=== PATIENT | female | born 1935 | race Caucasian/White ===

== ENCOUNTER → 2016-09-23 | Outpatient (CLI) | payer OTHER, BC ==
[~2016-09-23] MED LIST: ASPI81CH2 PO; B-COCAP2 PO; CLX20 PO; CRS10 PO; GLCSC500400 PO; HYDR25SU6 RE; IBUP-103 PO; METR0.7536 TOP; MULT-506 PO; PRED1SOL OPR; TRIA3AER INH
--- NOTE | 2016-09-23 14:52 | MAMMOGRAPHY REPORT ---
BILATERAL DIGITAL SCREENING MAMMOGRAM WITH CAD: 09/23/2016 CLINICAL HISTORY: Routine screening. Patient has no complaints. TECHNIQUE: Current study was also evaluated with a Computer Aided Detection (CAD) system. Bilatera l CC and MLO views were obtained. COMPARISON: Comparison is made to exams dated: 09/10/2014 mammogram, 11/17/2011 mammogram, 11/16/2010 mammogram - [facility], and 05/19/2009. BREAST COMPOSITION: There are scattered areas of fibroglandular density in both breasts. FINDINGS: No suspicious masses, calcifications, or areas of architectural distortion are noted in e ither breast. There has been no significant interval change compared to prior exams. Scattered bilat eral benign-appearing calcifications are not significantly changed. IMPRESSION: ACR BI-RADS CATEGORY 2: BENIGN There is no mammographic evidence of malignancy. A 1 year screening mammogram is recommended. The p atient will receive written notification of the results. Approximately 10% of breast cancers are not detected with mammography. A negative mammographic repor t should not delay biopsy if a clinically suggestive mass is present. Patricia Fernandes M.D. /:09/23/2016 13:21:19 Chief Marketing Officer: Nyasia FLORES)(Lissa), [facility] letter sent: Normal 1/2 BI-RADS Code: ACR BI-RADS Category 2: Benign
== END | disposition home or self-care (01) ==
LOC: C.MAMM 11:03
PROVIDERS: ATTEND Internal Medicine
DX: Z12.31 Encounter for screening mammogram for malignant neoplasm of breast (principal)

== ENCOUNTER → 2017-03-10 | Outpatient (CLI) | payer OTHER, BC | END | disposition home or self-care (01) | LOC: C.MAMM 15:35 | PROVIDERS: ATTEND Internal Medicine | DX: M81.0 Age-related osteoporosis without current pathological fracture (principal) ==

== ENCOUNTER → 2017-09-01 | Outpatient (CLI) | payer OTHER, BC ==
[2017-09-01 11:26] LABS: BASO % 0.6 %; BASO ABS # 0.05 K/uL (0-0.2); EOS ABS # 0.47 K/uL (0-0.5); HEMOGLOBIN 13.7 g/dL (12.0-16.0); IG# 0.01 K/uL (0.00-0.02); LYMPH % 34.6 %; LYMPH ABS # 2.73 K/uL (1.2-3.4); MEAN CELL VOLUME 95.6 fL (80-100); MEAN CORPUSCULAR HEMOGLOBIN 31.9 pg (25-34); MEAN CORPUSCULAR HGB CONC 33.4 g/dl (32-36); MEAN PLATELET VOLUME 10.8 fL (7.4-10.4); MONO % 7.4 %; MONO ABS # 0.58 K/uL (0.11-0.59); NEUT % 51.3 %; NEUT ABS # 4.05 K/uL (1.4-6.5); PLATELET COUNT 271 K/uL (130-400); RED CELL DISTRIBUTION WIDTH CV 13.1 % (11.5-14.5); RED CELL DISTRIBUTION WIDTH SD 45.4 fL (36.4-46.3); WHITE BLOOD COUNT 7.89 K/uL (4.8-10.8)
[2017-09-01 11:47] LABS: HEMOGLOBIN A1C 5.5 % (4.5-5.6)
[2017-09-01 11:59] LABS: ALBUMIN 3.7 gm/dl (3.4-5.0); ALKALINE PHOSPHATASE 62 U/L (45-117); ALT/SGPT 23 U/L (12-78); AST/SGOT 16 U/L (15-37); BLOOD UREA NITROGEN 13 mg/dl (7-18); CALCIUM 9.1 mg/dl (8.5-10.1); CARBON DIOXIDE 28 mmol/L (21-32); CHOLESTEROL 170 mg/dl (0-200); CREATININE 0.89 mg/dl (0.60-1.20); GLUCOSE 86 mg/dl (70-99); POTASSIUM 3.8 mmol/L (3.5-5.1); SODIUM 139 mmol/L (136-145)
[2017-09-01 12:02] LABS: LDL CHOLESTEROL CALCULATED 78 mg/dl
== END | disposition home or self-care (01) ==
LOC: C.LAB1850 09:58
PROVIDERS: ATTEND Internal Medicine
DX: F41.8 Other specified anxiety disorders (principal); R63.4 Abnormal weight loss

== ENCOUNTER → 2017-11-01 | Outpatient (CLI) | payer OTHER, BC | END | disposition home or self-care (01) | LOC: C.PAPS 14:28 | PROVIDERS: ATTEND Obstetrics & Gynecology | DX: Z12.4 Encounter for screening for malignant neoplasm of cervix (principal) ==

== ENCOUNTER 2023-10-25 14:51 | Inpatient (IN) ==
--- NOTE | 2023-10-25 15:17 | XRay Report ---
SINGLE VIEW CHEST CLINICAL HISTORY: Generalized weakness. Change in mental status. FINDINGS: An AP, portable, semierect chest radiograph is obtained. No prior studies are available for comparison at the time of dictation. The examination is degraded by portable technique and patient r otation. The heart is enlarged measuring atherosclerotic calcification of the thoracic aorta. The pu lmonary vasculature is noncongested. Nonspecific interstitial thickening is likely chronic. There is bibasilar scarring/atelectasis. No airspace consolidation or large pleural effusion is identified. No pneumothorax is seen. The skeletal structures are osteopenic. The bony thorax is grossly intact. Art hritic change is noted in the shoulders and spine. IMPRESSION: Cardiomegaly with no active disease in the chest. ACT 112: Negative or not required by law. Electronically signed by: Josiah Johnson M.D. 10/25/2023 3:15 PM
[2023-10-25 15:36] LABS: Basophils # (auto) 0.03 K/uL (0.00-0.20); Basophils % (auto) 0.3 %; Hematocrit (blood only) 41.9 % (37.0-47.0); Hemoglobin 13.9 g/dl (12.0-16.0); Immature Granulocytes # (auto) 0.04 K/uL (0.01-0.20); Immature Granulocytes % (auto) 0.4 %; Lymphocytes # (auto) 0.55 K/uL (1.20-3.40); Lymphocytes % (auto) 5.7 %; Mean Corpuscular Hemoglobin 31.9 pg (25.0-34.0); Mean Corpuscular Hgb Conc 33.2 g/dL (32.0-36.0); Mean Corpuscular Volume 96.1 fL (80.0-100.0); Mean Platelet Volume 9.5 fL (9.4-12.4); Monocytes # (auto) 0.42 K/uL (0.11-0.59); Monocytes % (auto) 4.4 %; Neutrophils # (auto) 8.54 K/uL (1.40-6.50); Neutrophils % (auto) 89.2 %; Platelet Count 186 K/uL (130-400); RDW Coefficient of Variation 12.4 % (11.5-14.5); Red Blood Count 4.36 M/uL (4.20-5.40); White Blood Count 9.58 K/ul (4.8-10.8)
[2023-10-25] MEDS: SODIUM CHLORIDE 0.9% 500 ML IV ONE (15:42)
[2023-10-25] MEDS: SODIUM CHLORIDE 0.9% 1,000 ML IV SCH (15:42)
[2023-10-25 15:53] LABS: Albumin Globulin Ratio 1.2 (0.9-2); Bilirubin,Total 1.2 mg/dl (0.2-1.0); Calcium 9.3 mg/dl (8.6-10.3); Creatinine Clr Calc Pharmacy 39.2 ml/min; Est GFR (African American) 78.6 ml/min; Est GFR (Non-African American) 67.8 ml/min; Globulin 3.4 gm/dl (2.5-4.0); Potassium 3.9 mmol/L (3.5-5.1); Total Protein 7.4 gm/dl (6.0-8.3)
[2023-10-25 15:59] LABS: Troponin I High Sensitivity 4.9 pg/ml (0-14)
--- NOTE | 2023-10-25 16:07 | CT Scan Report ---
CT SCAN OF THE CERVICAL SPINE CLINICAL HISTORY: Fall. Trauma. COMPARISON STUDY: No priors. TECHNIQUE: CT scan of the cervical spine is performed from the skull base to the upper thoracic spine . Images are reviewed in the axial, sagittal, and coronal planes. IV contrast was not administered fo r this examination. A dose lowering technique was utilized adhering to the principles of ALARA. FINDINGS: Skeletal structures: The skeletal structures are osteopenic. There is no evidence of fracture or subl uxation involving the cervical spine. Vertebral body height is maintained. There is minimal anterolis thesis at C3-C4. Alignment is otherwise preserved. There is straightening of the cervical lordosis. A nterior osteophytes are seen throughout. The odontoid process and lateral masses are intact. The atla ntoaxial articulation is preserved noting advanced productive degenerative change. The spinous proces ses appear intact. There is moderate multilevel cervical spondylosis. Uncovertebral and facet arthrop athy contribute to neural foraminal narrowing at several levels. Intervertebral discs: There is moderate to severe disc space narrowing at C5-C6 and C6-C7. Mild narro wing is seen at the remaining cervical levels. Central canal: Posterior disc osteophyte complexes at C5-C6, C6-C7, and T1-T2 likely contribute to mi ld acquired compromise the central canal. Soft tissues: The prevertebral and paraspinous soft tissues are within normal limits. The thyroid gla nd is not enlarged and heterogeneous. There is atherosclerotic calcification of the carotid bulbs. Calvarium: The visualized calvarium at the skull base appears intact. Brain parenchyma: Partially visualized brain parenchyma at the skull base is within normal limits. Sinuses and mastoids: The visualized paranasal sinuses are clear. The mastoid air cells are well pneu matized. Lung apices: Clear as visualized. IMPRESSION: 1. There is no evidence of fracture or subluxation involving the cervical spine. 2. Osteopenia and spondylotic change as above. ACT 112: Negative or not required by law. Electronically signed by: Josiah Johnson M.D. 10/25/2023 4:05 PM
[2023-10-25 16:08] LABS: Thyroid Stimulating Hormone 2.7 uIu/ml (0.300-4.500)
--- NOTE | 2023-10-25 16:09 | CT Scan Report ---
CT OF THE HEAD WITHOUT CONTRAST CLINICAL HISTORY: fall, left impact COMPARISON STUDY: Head CT August 24, 2010. MRI of the brain November 19, 2020. CT DOSE: 1484.36 mGy.cm TECHNIQUE: Helical axial images of the head were obtained without IV contrast. Automated exposure con trol was utilized for the study. A dose lowering technique was utilized adhering to the principles o f ALARA. FINDINGS: This exam is moderately compromised by motion artifact. No acute intracranial hemorrhage, m idline shift or mass effect is present. Ventricular dilatation is unchanged since previous MRI and re lated to central atrophy. White matter hypodensities suggest small vessel disease. No calvarial fract ures are identified although sensitivity for detection of nondisplaced fractures is diminished given motion artifact. IMPRESSION: 1. No acute intracranial findings. Exam moderately compromised by motion artifact. 2. No displaced calvarial fractures. ACT 112: Negative or not required by law. Electronically signed by: Gustabo Damon M.D. 10/25/2023 4:08 PM
[2023-10-25 16:23] LABS: Influenza A virus by PCR Negative (Neg); Influenza B virus by PCR Negative (Neg); RSV by PCR Negative (Neg); SARS CoV2 RNA(COVID-19) Ceph NEGATIVE (Negative)
[2023-10-25 17:13] LABS: Appearance Urine Turbid (Clear); Bacteria Urine Automated Negative (Negative); Bilirubin Urine Negative (Negative); Blood Urine Negative (Negative); Color Urine Yellow; Epithelial Cell Urine Auto >30 /lpf (0-5); Glucose Urine UA Negative (Negative); Ketones Urine Trace (Negative); Leukocyte Esterase Urine Negative (Negative); Nitrite Urine Negative (Negative); Protein Urine Negative (Negative); RBC Urine Automated 0-4 /hpf (0-4); Specific Gravity Urine 1.015 (1.000-1.030); Urobilinogen Urine Negative (Negative)
--- NOTE | 2023-10-25 18:48 | Emergency Department Note ---
Impression & Plan AMS (altered mental status), Syncope and collapse, Hypotension ED Provider Note NAME: JOCELYNN TILLEY AGE: 88 SEX: Female INFORMANT: ED PROVIDER(S): Trae Monk MD CHIEF COMPLAINT: Change in mental status PLAN: Disposition: Admitted Outpatient prescription management: none Referral: None MEDICAL DECISION MAKING: Patient presented because of change in mental status. She had a syncopal episode last week and 1 this week. Workup was initiated. She had a minor abrasion but no lacerations to the left scalp requiring suturing. CT imaging of the head and cervical spine were negative for any acute process. Patient's CBC and chemistry panels were unremarkable. She was mildly hypotensive and responded very well to a fluid bolus. noted that she was not eating or drinking well. Urinalysis did not reveal any signs of infection. ECG was without acute ischemia. No dysrhythmia on monitoring. Patient appears to have fairly advanced dementia. Discussed with regulatory process manager. Further management in the hospital was deemed appropriate. Consultation was made with [facility]. Case discussed and diagnostics were reviewed. Patient was evaluated in the ER by the team and admitted for further management. Care/management discussed with: regulatory process manager Level of care consideration(s): After review of the information above and other included data, I feel the patient requires escalation of care to admission Triage Nursing notes: reviewed and agree them. Vital Signs: reviewed and remarkable for borderline hypotension Additional History obtained from: Patient's . Patient cannot provide any detailed history due to her dementia. Chronic Medical/Social Conditions affecting care: Dementia Prior/ Outside/ External records reviewed: none Differential Diagnosis: Infection, hypoglycemia, electrolyte abnormalities, overdose, toxicologic, cardiac sources, intracerebral event, neurologic, trauma, as well as other pathologies. Diagnostics, independently interpreted by me: ECG: Twelve-lead ECG reveals sinus rhythm with sinus arrhythmia at 76 bpm. Septal Q wave present nonspecific ST abnormality. No ST elevation. Cardiac Monitoring: Cardiac monitoring ordered by me: The patient was placed on continuous cardiac monitoring and observed. It revealed a sinus rhythm at 80 beats per minute without ectopy or evidence of dysrhythmia. Medical decision rules: none Imaging studies: Head CT: A noncontrast CT scan of the head was performed and was negative for tumor, fracture, intracranial hemorrhage, or other acute pathology. HPI: 88 year old Female arrives for evaluation of change in mental status. notes that the patient has history of dementia but has had 2 syncopal episodes in the last week. He is also concerned that she has had some incontinence. She has not seen her primary provider since he retired. She is not currently taking any medications. did note that the episode today did cause an abrasion and some mild bleeding to the left scalp. Patient does not have any specific complaints and is mildly agitated. History is limited secondary to her dementia. PAST MEDICAL HISTORY: See Below, dementia PAST SURGICAL HISTORY: See Below, SOCIAL HISTORY: See Below, HOME MEDICATIONS: See Below ALLERGIES: See Below VITALS: See Below PHYSICAL EXAMINATION: GENERAL: Awake, alert, mildly agitated-appearing, in no distress HENT: Normocephalic, abrasion noted to the left posterior superior sikh area. Oropharynx unremarkable. EYES: Normal conjunctiva. Sclera non-icteric. NECK: Inspection normal. Non-tender. Supple. No nuchal rigidity. FROM. No masses. RESPIRATORY: Clear to auscultation. No wheezes. No rales. Normal respiratory effort. CARDIAC: Normal rate. Normal rhythm. No murmurs. No rubs. Extremities warm and well perfused. Pulses equal. No JVD. GI: Soft, non-distended. No tenderness to palpation. No rebound or guarding. No masses. RECTAL: Deferred. MUSCULOSKELETAL: Atraumatic. Chest examination reveals no tenderness. The back is symmetrical on inspection without obvious abnormality. There is no CVA tenderness to palpation. No joint edema. LOWER EXTREMITIES: Calves are equal size bilaterally and non-tender. No edema. No discoloration. NEURO: Demented sensorium. Moving arms and legs spontaneously. Following basic commands. SKIN: No rash or jaundice noted. PROCEDURES: none CRITICAL CARE: none OBSERVATION NOTE: none Past Med/Surg History Medical History (Updated 10/25/23 @ 18:49 by Kale Gilbert DO) Osteoporosis Depression Hyperlipidemia Weight loss External hemorrhoids Actinic keratosis Surgical History History of reduction of open fracture right distal radius History of carpal tunnel surgery right 02/27/2008 History of dilation and curettage History of colonoscopy History of cataract 2015 History of back surgery lumbar disc 1987 Family History Father Epilepsy Recurrent seizures Mother Hypertension Coronary heart disease Myocardial infarction Sister Alzheimer disease Depression Grandmother (Paternal) Diabetes Denies family history of Ovarian cancer Prostate cancer Breast cancer Lung cancer Colorectal cancer Stroke Social History Smoking Status: Never smoker Second Hand Exposure: No; Do You Dip or Chew Tobacco: No; Hx Alcohol Use: Yes Alcohol type: wine Alcohol Intake Frequency: 4 or More x per/Week Hx Substance Use: No Preferred Language: Portuguese Communication Ability: Effective Visual Impairment: Limited Hearing Ability: Normal Brand Planner Required: No marital status: Current Living Situation: Spouse current occupational status: retired How many Children do You have: 0 Feels Safe at Home: Yes Childhood Exposure to Second-Hand Smoke: Yes caffeine: Yes Dental Care, Regularly: Yes Physical Activity Frequency: Does not Exercise Seatbelt Use: always Sunscreen Use: Yes Allergies Allergies Allergy/AdvReac Type Severity Reaction Status Date / Time Penicillins Allergy Intermediate RASH Verified 12/15/22 15:21 adhesive Allergy Unknown RASH AND Verified 12/15/22 15:21 "SKIN DISINTEGRATES" clarithromycin [From Biaxin] Allergy Verified 12/15/22 15:21 Sulfa (Sulfonamide AdvReac Mild "make pt Verified 12/15/22 15:21 Antibiotics) sick" alendronate sodium AdvReac Verified 12/15/22 15:21 [From Fosamax] donepezil AdvReac nausea, Verified 12/15/22 15:21 shakiness, headaches Home Meds Previous Rx's Medication Instructions Recorded naproxen 500 mg tablet 500 mg PO Q12H PRN pain #14 tabs 08/07/23 Results & Data (ED) Vital Signs Vital Signs - 24 hr 10/25/23 15:32 10/25/23 15:38 10/25/23 15:38 Temperature 36.2 C L Temperature Source Oral Pulse Rate 81 80 Pulse Rhythm Regular Respiratory Rate 15 16 Blood Pressure 89/75 L Blood Pressure Mean 79 Pulse Oximetry 92 95 95 Oxygen Delivery Method Room Air Room Air Room Air Oxygen Flow Rate 0 Sepsis Recent Fever Within 48 Hours No Sepsis New/Unexplained Change in Mental Status No Sepsis Action Taken by Nursing No Action Required Laboratory Data 10/25/23 15:18 02/27/24 15:18 Lab Results 10/25/23 10/25/23 10/25/23 Range/Units 15:14 15:18 15:19 WBC 9.58 (4.8-10.8) K/ul RBC 4.36 (4.20-5.40) M/uL Hgb 13.9 (12.0-16.0) g/dl Hct 41.9 (37.0-47.0) % MCV 96.1 (80.0-100.0) fL MCH 31.9 (25.0-34.0) pg MCHC 33.2 (32.0-36.0) g/dL RDW Std Deviation 44.0 (36.4-46.3) fL RDW Coeff of [place] 12.4 (11.5-14.5) % Plt Count 186 (130-400) K/uL MPV 9.5 (9.4-12.4) fL Immature Gran % (Auto) 0.4 % Neut % (Auto) 89.2 % Lymph % (Auto) 5.7 % Cass[place] % (Auto) 4.4 % Eos % (Auto) 0.0 % Baso % (Auto) 0.3 % Neut # (Auto) 8.54 H (1.40-6.50) K/uL Lymph # (Auto) 0.55 L (1.20-3.40) K/uL [place] # (Auto) 0.42 (0.11-0.59) K/uL Eos # (Auto) 0.00 (0.00-0.50) K/uL Baso # (Auto) 0.03 (0.00-0.20) K/uL Immature Gran # (Auto) 0.04 (0.01-0.20) K/uL Sodium 139 (136-145) mmol/L Potassium 3.9 (3.5-5.1) mmol/L Chloride 106 (98-107) mmol/L Carbon Dioxide 26 (21-32) mmol/L Anion Gap 7 (3-11) BUN 15 (6-23) mg/dl Creatinine 0.79 (0.6-1.2) mg/dl Est Cr Clr Drug Dosing 39.2 ml/min Est GFR ( Amer) 78.6 ml/min Est GFR (Non-Af Amer) 67.8 ml/min BUN/Creatinine Ratio 19.0 (10-20) Glucose 98 (70-99(Fasting)) mg/dl POC Glucose 88 (70-99) mg/dl Calcium 9.3 (8.6-10.3) mg/dl Magnesium 2.0 (1.7-2.4) mg/dl Total Bilirubin 1.2 H (0.2-1.0) mg/dl AST 23 (13-39) U/L ALT 24 (7-52) U/L Alkaline Phosphatase 42 (34-104) U/L Troponin I High Sens 4.9 (0-14) pg/ml Total Protein 7.4 (6.0-8.3) gm/dl Albumin 4.0 (3.4-5.0) gm/dl Globulin 3.4 (2.5-4.0) gm/dl Albumin/Globulin Ratio 1.2 (0.9-2) TSH 2.700 (0.300-4.500) uIu/ml Urine Color Urine Appearance (Clear) Urine pH (4.5-7.5) Ur Specific [place] (1.000-1.030) Urine Protein (Negative) Urine Glucose (UA) (Negative) Urine Ketones (Negative) Urine Blood (Negative) Urine Nitrite (Negative) Urine Bilirubin (Negative) Urine Urobilinogen (Negative) Ur Leukocyte Esterase (Negative) Urine WBC (Auto) (0-5) /hpf Urine RBC (Auto) (0-4) /hpf U Hyaline Cast (Auto) (0-5) /lpf U Epithel Cells (Auto) (0-5) /lpf Urine Bacteria (Auto) (Negative) SARS-CoV-2 (PCR) NEGATIVE (Negative) Influenza Type A (PCR) Negative (Neg) Influenza Type B (PCR) Negative (Neg) RSV (RT-PCR) Negative (Neg) 10/25/23 Range/Units 17:05 WBC (4.8-10.8) K/ul RBC (4.20-5.40) M/uL Hgb (12.0-16.0) g/dl Hct (37.0-47.0) % MCV (80.0-100.0) fL MCH (25.0-34.0) pg MCHC (32.0-36.0) g/dL RDW Std Deviation (36.4-46.3) fL RDW Coeff of [place] (11.5-14.5) % Plt Count (130-400) K/uL MPV (9.4-12.4) fL Immature Gran % (Auto) % Neut % (Auto) % Lymph % (Auto) % Cassia % (Auto) % Eos % (Auto) % Baso % (Auto) % Neut # (Auto) (1.40-6.50) K/uL Lymph # (Auto) (1.20-3.40) K/uL [place] # (Auto) (0.11-0.59) K/uL Eos # (Auto) (0.00-0.50) K/uL Baso # (Auto) (0.00-0.20) K/uL Immature Gran # (Auto) (0.01-0.20) K/uL Sodium (136-145) mmol/L Potassium (3.5-5.1) mmol/L Chloride (98-107) mmol/L Carbon Dioxide (21-32) mmol/L Anion Gap (3-11) BUN (6-23) mg/dl Creatinine (0.6-1.2) mg/dl Est Cr Clr Drug Dosing ml/min Est GFR ( Amer) ml/min Est GFR (Non-Af Amer) ml/min BUN/Creatinine Ratio (10-20) Glucose (70-99(Fasting)) mg/dl POC Glucose (70-99) mg/dl Calcium (8.6-10.3) mg/dl Magnesium (1.7-2.4) mg/dl Total Bilirubin (0.2-1.0) mg/dl AST (13-39) U/L ALT (7-52) U/L Alkaline Phosphatase (34-104) U/L Troponin I High Sens (0-14) pg/ml Total Protein (6.0-8.3) gm/dl Albumin (3.4-5.0) gm/dl Globulin (2.5-4.0) gm/dl Albumin/Globulin Ratio (0.9-2) TSH (0.300-4.500) uIu/ml Urine Color Yellow Urine Appearance Turbid A (Clear) Urine pH 8.0 H (4.5-7.5) Ur Specific [place] 1.015 (1.000-1.030) Urine Protein Negative (Negative) Urine Glucose (UA) Negative (Negative) Urine Ketones Trace H (Negative) Urine Blood Negative (Negative) Urine Nitrite Negative (Negative) Urine Bilirubin Negative (Negative) Urine Urobilinogen Negative (Negative) Ur Leukocyte Esterase Negative (Negative) Urine WBC (Auto) 1-5 (0-5) /hpf Urine RBC (Auto) 0-4 (0-4) /hpf U Hyaline Cast (Auto) 1-5 (0-5) /lpf U Epithel Cells (Auto) >30 H (0-5) /lpf Urine Bacteria (Auto) Negative (Negative) SARS-CoV-2 (PCR) (Negative) Influenza Type A (PCR) (Neg) Influenza Type B (PCR) (Neg) RSV (RT-PCR) (Neg) Administered Medications Discontinued Medications Sodium Chloride (Nss) 1,000 mls @ 125 mls/hr IV .Q8H RADHA Stop: 10/25/23 23:14 Last Admin: 10/25/23 15:42 Dose: Not Given Documented By: KV Sodium Chloride (Nss) 500 mls @ 999 mls/hr IV .Q31M ONE Stop: 10/25/23 15:55 Last Infusion: 10/25/23 17:26 Dose: Infused Documented By: Admin: 10/25/23 15:42 Dose: 999 mls/hr Documented By: KV Olanzapine (Olanzapine 10 Mg/2.1 Ml Sdv) 5 mg IM NOW STA Stop: 10/25/23 18:32 Last Admin: 10/25/23 19:19 Dose: 5 mg Documented By: LCD Imaging Data Radiologist's Impression: Chest X-Ray 10/25/23 15:06 SINGLE VIEW CHEST CLINICAL HISTORY: Generalized weakness. Change in mental status. FINDINGS: An AP, portable, semierect chest radiograph is obtained. No prior studies are available for comparison at the time of dictation. The examination is degraded by portable technique and patient rotation. The heart is enlarged measuring atherosclerotic calcification of the thoracic aorta. The pulmonary vasculature is noncongested. Nonspecific interstitial thickening is likely chronic. There is bibasilar scarring/atelectasis. No airspace consolidation or large pleural effusion is identified. No pneumothorax is seen. The skeletal structures are osteopenic. The bony thorax is grossly intact. Arthritic change is noted in the shoulders and spine. IMPRESSION: Cardiomegaly with no active disease in the chest. ACT 112: Negative or not required by law. Electronically signed by: Josiah Johnson M.D. 10/25/2023 3:[address] 10/25/23 15:24 CT SCAN OF THE CERVICAL SPINE CLINICAL HISTORY: Fall. Trauma. COMPARISON STUDY: No priors. TECHNIQUE: CT scan of the cervical spine is performed from the skull base to the upper thoracic spine. Images are reviewed in the axial, sagittal, and coronal planes. IV contrast was not administered for this examination. A dose lowering technique was utilized adhering to the principles of ALARA. FINDINGS: Skeletal structures: The skeletal structures are osteopenic. There is no evidence of fracture or subluxation involving the cervical spine. Vertebral body height is maintained. There is minimal anterolisthesis at C3-C4. Alignment is otherwise preserved. There is straightening of the cervical lordosis. Anterior osteophytes are seen throughout. The odontoid process and lateral masses are intact. The atlantoaxial articulation is preserved noting advanced productive degenerative change. The spinous processes appear intact. There is moderate multilevel cervical spondylosis. Uncovertebral and facet arthropathy contribute to neural foraminal narrowing at several levels. Intervertebral discs: There is moderate to severe disc space narrowing at C5-C6 and C6-C7. Mild narrowing is seen at the remaining cervical levels. Central canal: Posterior disc osteophyte complexes at C5-C6, C6-C7, and T1-T2 likely contribute to mild acquired compromise the central canal. Soft tissues: The prevertebral and paraspinous soft tissues are within normal limits. The thyroid gland is not enlarged and heterogeneous. There is atherosclerotic calcification of the carotid bulbs. Calvarium: The visualized calvarium at the skull base appears intact. Brain parenchyma: Partially visualized brain parenchyma at the skull base is within normal limits. Sinuses and mastoids: The visualized paranasal sinuses are clear. The mastoid air cells are well pneumatized. Lung apices: Clear as visualized. IMPRESSION: 1. There is no evidence of fracture or subluxation involving the cervical spine. 2. Osteopenia and spondylotic change as above. ACT 112: Negative or not required by law. Electronically signed by: Josiah Johnson M.D. 10/25/2023 4:[address] 10/25/23 15:24 CT OF THE HEAD WITHOUT CONTRAST CLINICAL HISTORY: fall, left impact COMPARISON STUDY: Head CT August 24, 2010. MRI of the brain November 19, 2020. CT DOSE: 1484.36 mGy.cm TECHNIQUE: Helical axial images of the head were obtained without IV contrast. Automated exposure control was utilized for the study. A dose lowering technique was utilized adhering to the principles of ALARA. FINDINGS: This exam is moderately compromised by motion artifact. No acute intracranial hemorrhage, midline shift or mass effect is present. Ventricular dilatation is unchanged since previous MRI and related to central atrophy. White matter hypodensities suggest small vessel disease. No calvarial fractures are identified although sensitivity for detection of nondisplaced fractures is diminished given motion artifact. IMPRESSION: 1. No acute intracranial findings. Exam moderately compromised by motion artifact. 2. No displaced calvarial fractures. ACT 112: Negative or not required by law. Electronically signed by: Gustabo Damon M.D. 10/25/2023 4:08 PM Discharge Plan Visit Data Chief Complaint: Altered Mental Status ED Provider: Trae Monk Discharge Problem: AMS (altered mental status), Syncope and collapse, Hypotension Patient Disposition: Admitted As Inpatient Discharge Instructions Interventions: ED Discharge Assessment Last Done: 10/25/23 21:15
--- NOTE | 2023-10-25 18:59 | History & Physical Report ---
Date of Service October 25, 2023 Assessment & Plan (1) Cognitive impairment: Plan: Patient is an 88-year-old female with past medical history of dementia and depression/anxiety who presents to the hospital via EMS for increasing confusion. This seems to be a chronic issue that is gradually been worsening rather than an acute/abrupt worsening. Patient to be admitted for case management consultation and placement for long-term care facility. -Admit to [facility], case management consultation placed for urgent/complex case management needs -Frequent reorientation as able -One-to-one supervision required -Dose of Zyprexa given in ED given agitation and fall risk to patient -Blood work including CBC, CMP, TSH, UA nondiagnostic thus far -Head imaging demonstrating no acute abnormality -Patient will likely require dementia sanders level of care given increased confusion and failure to thrive -Workup thus far has not demonstrated any acute abnormality causing worsening confusion. -In addition to ED labs, urine drug screen, phosphorous and vitamin B12 added and pending -Boost supplementation added due to low weight and poor appetite -May need to bolus intermittently as do not feel at this time patient would tolerate maintenance IV fluid given confusion (2) Failure to thrive in adult: Plan: -Poor dietary intake likely secondary to cognitive impairment -Minced and moist diet to reduce aspiration risk -Boost supplementation added -Given a bolus of normal saline in the ED, suspect patient has still relatively dehydrated -Encourage oral hydration but may require additional boluses of fluid, will hold utilizing maintenance IV medication as I do not feel patient will tolerate it right now given poor cooperation and confusion. Plan Disposition: Admit to [facility] with case management consultation for placement, aspiration/fall precautions DVT prophylaxis: GYPSY pelaez given multiple falls, chemoprophylaxis contraindicated Diet: Regular with minced and moist texture CODE STATUS: Full code as patient cannot make decisions on her own and unable to make decision, strongly encourage to readdress this tomorrow History of Present Illness Chief Complaint: Increasing confusion Primary Care Provider: NO PCP Patient is an 88-year-old female with past medical history of dementia and depression/anxiety who presents to the hospital via EMS for increasing confusion. is present at bedside at the time of interview. Both patient and are poor historians and patient is significantly confused to the point that she does not understand where she is at and why she has so many blankets on. It seems that the patient has had issues with confusion as progressively been getting worse over the past year. It seems there is a history of her having depression/anxiety and was previously on Celexa but this has been discontinued. Patient previously on memantine as well and this has also been discontinued. Patient takes no medications routinely. Patient's hus band reports that there has been no vomiting episodes. She has been falling more recently with 2 events where she fell and hit her head. She has been eating and drinking much less lately as well which has been concerning for her . No other meaningful HPI gathered at this time. ED course: Patient evaluated by provider. Labs show no abnormalities except for a mildly elevated bilirubin of 1.2. Urinalysis negative for leukocyte esterase or nitrates. Head imaging not demonstrating any acute pathology. The hospitalist service was consulted for admission to get the patient placed in a care facility. Allergies Allergy/AdvReac Type Severity Reaction Status Date / Time Penicillins Allergy Intermediate RASH Verified 12/15/22 15:21 adhesive Allergy Unknown RASH AND Verified 12/15/22 15:21 "SKIN DISINTEGRATES" clarithromycin [From Biaxin] Allergy Verified 12/15/22 15:21 Sulfa (Sulfonamide AdvReac Mild "make pt Verified 12/15/22 15:21 Antibiotics) sick" alendronate sodium AdvReac Verified 12/15/22 15:21 [From Fosamax] donepezil AdvReac nausea, Verified 12/15/22 15:21 shakiness, headaches Home Medications Medication Instructions Recorded Confirmed Type naproxen 500 mg tablet 500 mg PO Q12H PRN pain #14 tabs 08/07/23 10/25/23 Rx Past Med/Surg History Medical History (Updated 10/25/23 @ 18:49 by Kale Gilbert DO) Osteoporosis Depression Hyperlipidemia Weight loss External hemorrhoids Actinic keratosis Surgical History History of reduction of open fracture right distal radius History of carpal tunnel surgery right 02/27/2008 History of dilation and curettage History of colonoscopy History of cataract 2015 History of back surgery lumbar disc 1987 Family History Father Epilepsy Recurrent seizures Mother Hypertension Coronary heart disease Myocardial infarction Sister Alzheimer disease Depression Grandmother (Paternal) Diabetes Denies family history of Ovarian cancer Prostate cancer Breast cancer Lung cancer Colorectal cancer Stroke Social History Smoking Status: Unknown if ever smoked Second Hand Exposure: No; Do You Dip or Chew Tobacco: No; Hx Alcohol Use: Yes Alcohol type: wine Alcohol Intake Frequency: 4 or More x per/Week Hx Substance Use: No Preferred Language: Urdu Communication Ability: Effective Visual Impairment: Limited Hearing Ability: Normal 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 marital status: Current Living Situation: Spouse Current Living Situation Comment: lives at home with 96 year old current occupational status: retired How many Children do You have: 0 Feels Safe at Home: Yes Childhood Exposure to Second-Hand Smoke: Yes caffeine: Yes Dental Care, Regularly: Yes Physical Activity Frequency: Does not Exercise Seatbelt Use: always Sunscreen Use: Yes Review of Systems Review of Systems: Unobtainable due to cognitive status Physical Exam Constitutional: + thin, + altered mental status and + di sheveled; + uncooperative Eyes: + anicteric sclerae Neck: normal visual inspection Respiratory: normal respiratory effort, lungs clear to auscultation Cardiovascular: Rate/Rhythm: regular rate and regular rhythm Extremities: no edema Skin: + turgor decreased Neurologic: moves all extremities Psychiatric: Orientation: alert; + not oriented to person, + not oriented to place, + not oriented to time and + uncooperative Affect: + anxious affect and + irritable affect Results & Data Results & Data Vital Signs (Past 12 Hours) Vital Signs Temp Pulse Resp BP Pulse Ox O2 Del Method O2 Flow Rate 10/25/23 15:38 80 16 95 Room Air 10/25/23 15:38 95 Room Air 0 10/25/23 15:32 36.2 C L 81 15 89/75 L 92 Room Air Supervising Physician Co-Signing Physician Notes I personally saw and examined the patient. I verified all jose points and agree with resident physician Dr Kale Gilbert, with the following exceptions and/or additions: 88 year old female with slow progressive worsening decline. Unable to get any history from the patient and no longer at bedside when seen. O/E Crying frequently in bed, alert but not orientated x3, able to follow simple one step commands, psychomotor agitation, frail appearing and malnourished, HS RRR, no murmurs, Chest CTAB, Abdo SNT A/P Dementia - no definitive underlying delirium and history of slow progression rather than sudden decline fits with just progression of her dementia. B12 level adn TSH level added for dementia workup. CT head unremarkable. Likely need for placement. PT/OT ordered. SLT ordered as unclear if she is safe to eat although given no hospitalization for aspiration diet ok for now. Previously on memantine but doubtful any benefit at this stage. Possible underlying anxiety/depression - Previously on citalopram but looks like this was not refilled since Dr Horton retired. Consider restarting SSRI. Not currently prescribed as would need to discuss this with her first. Resident Activity Tracking Resident Involvement: Resident Care Provided Care Provided: Adult Hospital Medicine
[2023-10-25] MEDS: OLANZapine 10 MG/2.1 ML SDV IM STA (19:19)
[2023-10-25 23:11] LABS: Amphetamines+Metham, Urine Neg (Neg); Barbiturates, Urine Neg (Neg); Benzodiazepine, Urine Neg (Neg); Cocaine, Urine Neg (Neg); MDMA (Ecstacy), Urine Neg (Neg); Marijuana, Urine Neg (Neg); Methadone, Urine Neg (Neg); Opiate, Urine Neg (Neg); Phencyclidine, Urine Neg (Neg)
[2023-10-26] MEDS: ACETAMINOPHEN 500 MG TAB PO PRN (03:29)
[2023-10-26] MEDS: MELATONIN 3 MG TAB PO PRN (03:29)
--- NOTE | 2023-10-26 08:57 | Billing Data ---
Date of Service October 25, 2023 Coding Level of Care Code 82186 INT INP/OBS CARE
--- OUTSIDE RECORDS SUMMARY | 2023-10-26 08:57 | External Medical Summary | Continuity of Care Document ---
Author Name Unknown Organization [address] Address [address] [place] [id number] Care Team Providers Care Surveillance Director Name Role Phone Blaze Horton Primary Care Physician [phone] Encounter [facility] [id number] Date(s): 10/05/23 - 10/05/[address] Ezequiel [address], [facility] [address] [place] [address] [phone] Encounter Diagnosis Body mass index [BMI] 19.9 or less, adult(Discharge Diagnosis) - 10/05/23 Contact dermatitis(Discharge Diagnosis) - 10/05/23 SK (seborrheic keratosis)(Discharge Diagnosis) - 10/05/23 Alzheimer disease(Discharge Diagnosis) - 10/05/23 Encounter for vitamin deficiency screening(Discharge Diagnosis) - 10/05/23 Confusion(Discharge Diagnosis) - 10/05/23 Anxiety(Discharge Diagnosis) - 10/05/23 Trigger finger(Discharge Diagnosis) - 10/05/23 Discharge Disposition: Home or Self Care Attending Physician: JACKELIN Bermudez Katy Marie Referring Physician: JACKELIN Bermudez Katy Marie Allergies, Adverse Reactions, Alerts No Known Medication Allergies Assessment and Plan Extracted from: Title:Office Visit Note Author:JACKELIN Bermudez Kat y Marie Date:10/05/23 1.Alzheimer disease Problem isChronic Goal:maintence Data:_ Plan:community resource booklet given, discussed [facility] with , discussed safety concerns at home, discussed return precautions 3.Confusion Problem isSubacute Goal:maintence Data:_ Plan:as above 4.Anxiety Problem is_ Goal:_ Data:_ Plan:No medications at this time, 5.Trigger finger Problem isAcute Goal:resolution Data:_ Plan:refer to ortho, trial of Voltaren gel verbalizes understanding and agrees with plan Medications MetroCream 0.75% topical cream Start: 10/05/23 14:55:00 EST, 1 appl, topical, bid, Disp# 45 g, Refills: 3, TO face once or twice aday, other Start Date: 10/05/23 Status: Ordered Voltaren 1% topical gel Start: 10/05/23 15:04:00 EST, 1 appl, topical, qid, Disp# 100 g, PRN: Pain, Pharmacy: [id number] Start Date: 10/05/23 Status: Ordered Problem List Condition Confirmation Course Effective Dates Status H ealth Status Informant Anxiety Confirmed Active Biceps tendinitis Confirmed Active Contact dermatitis Confirmed Active Dermatitis Confirmed Active Disorder of rotator cuff Confirmed Active Right carpal tunnel syndrome Confirmed Active Elevated cholesterol Confirmed Active Headache 1 Confirmed Active Rotator cuff impingement syndrome Confirmed Active Knee joint effusion Confirmed Active Osteoarthritis of knee Confirmed Active Skin pain Confirmed Active Rosacea Confirmed Active Sacroiliac joint inflamed Confirmed Active Shoulder pain Confirmed Active SK (seborrheic keratosis) Confirmed Active simin bonilla Diagnosis Diagnosis Type Effective Dates Health Status Clinical Service Informant Body mass index [BMI] 19.9 or less, adult Discharge Diagnosis 10/05/23 Non-Specified SK (seborrheic keratosis) Discharge Diagnosis 10/05/23 Non-Specified Contact dermatitis Discharge Diagnosis 10/05/23 Non-Specified Alzheimer disease Discharge Diagnosis 10/05/23 Encounter for vitamin deficiency screening Discharge Diagnosis 10/05/23 Confusion Discharge Diagnosis 10/05/23 Anxiety Discharge Diagnosis 10/05/23 Trigger finger Discharge Diagnosis 10/05/23 Non-Specified Procedures Procedure Date Related Diagnosis Body Site Status back surgery Completed D&C - Dilatation and curettage Completed Skin biopsy Completed wrist surgery Completed Vital Signs Most recent to oldest [Reference Range]: 1 Height 158.9 cm (10/05/23 2:32 PM) Patient Weight 47.3 kg (10/05/23 2:32 PM) Body Mass Index 18.73 kg/m2 (10/05/23 2:32 PM) Temperature [36.5-37.9 DegC] 36.5 DegC (10/05/23 2:32 PM) Heart Rate 82 bpm (10/05/23 2:32 PM) Respiratory Rate 16 br/min (10/05/23 2:32 PM) Blood Pressure 110/70mmHg (10/05/23 2:32 PM) Cuff Pulse Pressure 40 mmHg (10/05/23 2:32 PM) Social History Social History Type Response Smoking Status Never smoked cigaret naomie Sex Female [facility] Outpt Note * JACKELIN Bermudez, Yana Herron: PERFORM Event Display: [facility] Outpt Note Authored Date: Chief Complaint establish care- right middle finger contracted for last 3 weeks. memory getting worse History of Present Illness Marisol is an 87 year old female who presents today to establish care. Her PCP has retired and she has not been seen in several years. Unable to recall his name. She is with her who is her caregiver. reports poor memory. Progressing over past 6 months, considerably worse over 2-3 months. [facility] [place] [facility] - [facility] No recent illnesses. Difficult to obtain ROS d/t nature of her Alzheimer's. She does c/o right middle finger is painful and contracted. She is able to straighten it but painful. Review of Systems A total of 10 systems were reviewed. Pertinent positive and negatives addressed in HPI, all other findings are negative. Physical Exam Vitals & Measurements T:36.5C HR:82(Monitored) RR:16 BP:110/70 SpO2:97% HT:158.9cm WT:47.300kg(Dosing) WT:47.3kg BMI:18.73 Constitutional: Alert, No acute distress, Well-appearing, tearful mood and affect, follows simple commands Respiratory: Lung sounds are clear, equal chest rise and fall with breathing, no pursed lip breathing Cardiovascular: Heart sounds regular rate and rhythm, without gallop or murmur, no edema HEENT: Normocephalic, atraumatic, conjunctiva are clear, sclera non-icteric, EOM intact Gastrointestinal: abdomen is soft and non-tender to palpation, normoactive BS, no organomegaly/masses/hernia Musculoskeletal: No weakness, normal gait, no atrophy or abnormal muscle tone, right middle finger is contracted with swelling at the PIP joint Neurological: CN 2-12 grossly intact Skin: Warm, pink, dry, intact Assessment/Plan 1.Alzheimer disease Problem isChronic Goal:maintence Data:_ Plan:community resource booklet given, discussed [facility] with , discussed safety concerns at home, discussed return precautions 3.Confusion Problem isSubacute Goal:maintence Data:_ Plan:as above 4.Anxiety Problem is_ Goal:_ Data:_ Plan:No medications at this time, 5.Trigger finger Problem isAcute Goal:resolution Data:_ Plan:refer to ortho, trial of Voltaren gel verbalizes understanding and agrees with plan Problem List/Past Medical History Ongoing Anxiety Biceps tendinitis Contact dermatitis Dermatitis Disorder of rotator cuff Elevated cholesterol Headache Knee joint effusion Osteoarthritis of knee Right carpal tunnel syndrome Rosacea Rotator cuff impingement syndrome Sacroiliac joint inflamed Shoulder pain SK (seborrheic keratosis) Skin pain Procedure/Surgical History D&C - Dilatation and curettage wrist surgery back surgery Skin biopsy Medications diclofenac topical(Voltaren 1% topical gel), 1 appl, topical, qid, PRN metroNIDAZOLE topical(MetroCream 0.75% topical cream), 1 appl, topical, bid, 3 refills Allergies No Known Medication Allergies Social History Smoking Status Never smoked cigarettes Recommendations Health Maintenance Pending(in the next year) OverDue Adult Influenza Vaccine due02/25/23and every 1year Due Adult COVID-19 Vaccination due10/05/23Unknown Frequency Adult Social Determinants of Health Screening due10/05/23Unknown Frequency Adult Tdap/Td Vaccine due10/05/23Unknown Frequency Medicare Annual Wellness Visit due10/05/23and every 1year Pneumococcal Vaccine Older Adults due10/05/23One-time only Shingles Vaccine due10/05/23One-time only Satisfied(in the past 1 year) Satisfied Body Mass Index on10/05/23.Satisfied by CITLALI Payne Angela Electronic Signature on File CC: Jackie Damon, DO [address] [facility] [address] [facility] [id number] Electronically Reviewed/Signed by: JACKELIN Franco Author Signature Dt/Tm:10/05/2023 03:21 PM Department of Family Medicine [facility] Patient Care team information Care Team Personnel Name: MD Horton Paul Position: Referring DIRECT Member Role: Primary Care Provider Address: Address: [address] [place] [address] [place] Care Team Related Persons Name: JAREKJOSÉ ANTONIO Address: home [address] [phone] Name: JOSÉ ANTONIO TILLEY Address: [place] Address: home [address] [phone]
--- NOTE | 2023-10-26 10:16 | Electrocardiogram Report ---
Test Reason : Blood Pressure : / mmHG Vent. Rate : 076 BPM Atrial Rate : 076 BPM P-R Int : 162 ms QRS Dur : 068 ms QT Int : 356 ms P-R-T Axes : 086 031 039 degrees QTc Int : 400 ms Sinus rhythm with occasional Premature atrial complexes Septal infarct , age undetermined Abnormal ECG When compared with ECG of 27-AUG-2010 10:35, Septal infarct is now Present Nonspecific T wave abnormality, worse in Anterior leads QT has shortened Confirmed by Wero Brooks ([id number]) on 10/26/2023 10:16:43 AM Referred By: Confirmed By:Wero Brooks
[2023-10-26] MEDS: CYANOCOBALAMIN 1000 MCG/ML VIAL IM SCH (12:43)
--- NOTE | 2023-10-26 20:29 | Hospitalist Progress Note ---
Date of Service October 26, 2023 Assessment & Plan (1) Cognitive impairment: Plan: will need to get additional history from family/friends but it sounds like she has had worsening mentation for 1-2 years or longer. she had a large drop off in memory and function starting in late fall by report. consider MRI brain. check B1 level. replace low B12. 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 (2) Failure to thrive in adult: Plan: Could consider remeron at bedtime - had been taking SSRI up until recently. Remeron may help night-time sleep, eating, and her depression. (3) Dementia with agitation: Plan: severe. by report she has had some cognitive issues over the last year or two but got markedly worse starting in the late fall 2022. consider MRI brain to r/o strokes/vascular causes of her memory loss. replace low B12. check B1 level. (4) Mild malnutrition: Plan: BMI 19, with recent weight loss of about 2-3 kg over the last few months. Will supplement B12. Give MVI. Check a B1 level as well. (5) Tachycardia: Plan: during my exam she had an episode of tachycardia - very regular - with rate of at least 150 BPM, probably closer to 160 BPM. I ordered STAT EKG. by the time it was done a few minutes later she was back in NSR with rate <80. will obtain echo. recent electrolytes and TSH were wnl. SVT? consider moving to tele for monitoring. despite the tachycardia she had no apparent symptoms. 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 but otherwise unable to provide other meaningful history or ROS per staff - eating well, drinking ok, directable; no agitation Review of Systems Review of Systems: Unobtainable due to cognitive status Physical Exam Physical Exam: gen - thin, pleasantly confused, NAD mouth - MMM neck - no obvious JVD heart - tachycardic, rate about 150-160, s1 s2, no murmur lungs - CTA b/l abd - soft NT ND BS+ ext - no edema psych - oriented to person only Results & Data Results & Data Vital Signs (Past 12 Hours) Vital Signs Temp Pulse Resp BP Pulse Ox O2 Del Method 10/26/23 15:24 36.4 C L 76 18 98/58 L 99 Room Air 10/26/23 13:37 71 18 96/68 L Room Air 10/26/23 12:27 65 15 94/62 L 97 Room Air 10/26/23 09:03 75 16 93/63 L 98 Room Air Laboratory Results Laboratory Results - last 48 hr 10/25/23 10/25/23 10/25/23 15:14 15:18 15:19 WBC 9.58 RBC 4.36 Hgb 13.9 Hct 41.9 MCV 96.1 MCH 31.9 MCHC 33.2 RDW Std Deviation 44.0 RDW Coeff of [place] 12.4 Plt Count 186 MPV 9.5 Immature Gran % (Auto) 0.4 Neut % (Auto) 89.2 Lymph % (Auto) 5.7 [place] % (Auto) 4.4 Eos % (Auto) 0.0 Baso % (Auto) 0.3 Neut # (Auto) 8.54 H Lymph # (Auto) 0.55 L [place] # (Auto) 0.42 Eos # (Auto) 0.00 Baso # (Auto) 0.03 Immature Gran # (Auto) 0.04 Sodium 139 Potassium 3.9 Chloride 106 Carbon Dioxide 26 Anion Gap 7 BUN 15 Creatinine 0.79 Est Cr Clr Drug Dosing 39.2 Est GFR ( Amer) 78.6 Est GFR (Non-Af Amer) 67.8 BUN/Creatinine Ratio 19.0 Glucose 98 POC Glucose 88 Lactate Calcium 9.3 Phosphorus Magnesium 2.0 Total Bilirubin 1.2 H AST 23 ALT 24 Alkaline Phosphatase 42 Troponin I High Sens 4.9 Total Protein 7.4 Albumin 4.0 Globulin 3.4 Albumin/Globulin Ratio 1.2 Vitamin B12 TSH 2.700 Urine Color Urine Appearance Urine pH Ur Specific [place] Urine Protein Urine Glucose (UA) Urine Ketones Urine Blood Urine Nitrite Urine Bilirubin Urine Urobilinogen Ur Leukocyte Esterase Urine WBC (Auto) Urine RBC (Auto) U Hyaline Cast (Auto) U Epithel Cells (Auto) Urine Bacteria (Auto) Urine Opiates Screen Ur Methadone, Qual Urine Barbiturates Ur Phencyclidine (PCP) U Amphetamin/Meth Scrn MDMA (Ecstasy) Screen U Benzodiazepines Scrn Ur Cocaine Metabolite U Marijuana (THC) Screen SARS-CoV-2 (PCR) NEGATIVE Influenza Type A (PCR) Negative Influenza Type B (PCR) Negative RSV (RT-PCR) Negative 10/25/23 10/25/23 17:05 19:23 WBC RBC Hgb Hct MCV MCH MCHC RDW Std Deviation RDW Coeff of [place] Plt Count MPV Immature Gran % (Auto) Neut % (Auto) Lymph % (Auto) [place] % (Auto) Eos % (Auto) Baso % (Auto) Neut # (Auto) Lymph # (Auto) [place] # (Auto) Eos # (Auto) Baso # (Auto) Immature Gran # (Auto) Sodium Potassium Chloride Carbon Dioxide Anion Gap BUN Creatinine Est Cr Clr Drug Dosing Est GFR ( Amer) Est GFR (Non-Af Amer) BUN/Creatinine Ratio Glucose POC Glucose Lactate 1.2 Calcium Phosphorus 3.1 Magnesium Total Bilirubin AST ALT Alkaline Phosphatase Troponin I High Sens Total Protein Albumin Globulin Albumin/Globulin Ratio Vitamin B12 134 L TSH Urine Color Yellow Urine Appearance Turbid A Urine pH 8.0 H Ur Specific [place] 1.015 Urine Protein Negative Urine Glucose (UA) Negative Urine Ketones Trace H Urine Blood Negative Urine Nitrite Negative Urine Bilirubin Negative Urine Urobilinogen Negative Ur Leukocyte Esterase Negative Urine WBC (Auto) 1-5 Urine RBC (Auto) 0-4 U Hyaline Cast (Auto) 1-5 U Epithel Cells (Auto) >30 H Urine Bacteria (Auto) Negative Urine Opiates Screen Neg Ur Methadone, Qual Neg Urine Barbiturates Neg Ur Phencyclidine (PCP) Neg U Amphetamin/Meth Scrn Neg MDMA (Ecstasy) Screen Neg U Benzodiazepines Scrn Neg Ur Cocaine Metabolite Neg U Marijuana (THC) Screen Neg SARS-CoV-2 (PCR) Influenza Type A (PCR) Influenza Type B (PCR) RSV (RT-PCR) PG Care Time/CCT Total # of Minutes Spent Total Time Spent with Patient: Total time spent is greater than 50% in coordination of care (as documented) at patient's floor/unit and/or counseling patient: Coding Level of Care Code 63260 SUB INP/OBS CARE 2/35MIN Diagnoses Cognitive impairment R41.89 Failure to thrive in adult R62.7 Dementia with agitation F03.911 Mild malnutrition E44.1 Tachycardia R00.0 B12 deficiency E53.8
[2023-10-27] MEDS: CEROVITE ADV FORMULA TAB PO SCH (10:23)
--- NOTE | 2023-10-27 12:59 | Electrocardiogram Report ---
Test Reason : Blood Pressure : / mmHG Vent. Rate : 076 BPM Atrial Rate : 076 BPM P-R Int : 156 ms QRS Dur : 064 ms QT Int : 394 ms P-R-T Axes : 078 -27 022 degrees QTc Int : 443 ms Poor data quality, interpretation may be adversely affected Normal sinus rhythm Nonspecific ST and T wave abnormality Abnormal ECG When compared with ECG of 25-OCT-2023 15:07, Premature atrial complexes are no longer Present Criteria for Septal infarct are no longer Present Confirmed by Wero Brooks ([id number]) on 10/27/2023 12:59:10 PM Referred By: REFERRED SELF Confirmed By:Wero Brooks
--- NOTE | 2023-10-27 13:19 | XCELERA ---
[id number] \\[id number]\[email or web address]_[id number]
--- NOTE | 2023-10-27 20:16 | Hospitalist Progress Note ---
Date of Service October 27, 2023 Assessment & Plan (1) Cognitive impairment: Plan: will need to get additional history from family/friends but it sounds like she has had worsening mentation for 1-2 years or longer. she had a large drop off in memory and function starting in late fall by report. consider MRI brain. check B1 level. replace low B12. 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 consider placing back on antidepressant (had been on celexa in the recent past but was stopped?). (2) Failure to thrive in adult: Plan: Could consider remeron at bedtime - had been taking SSRI up until recently. Remeron may help night-time sleep, eating, and her depression. (3) Dementia with agitation: Plan: severe. by report she has had some cognitive issues over the last year or two but got markedly worse starting in the late fall 2022. consider MRI brain to r/o strokes/vascular causes of her memory loss. replace low B12. check B1 level. (4) Mild malnutrition: Plan: BMI 19, with recent weight loss of about 2-3 kg over the last few months. Will supplement B12. Give MVI. Check a B1 level as well. (5) Tachycardia: Plan: during my exam on 10/26 she had an episode of tachycardia - very regular - with rate of at least 150 BPM, probably closer to 160 BPM. I ordered STAT EKG. by the time it was done a few minutes later she was back in NSR with rate <80. echo obtained - normal LV function, acceptable valve function. recent electrolytes and TSH were wnl. SVT? consider moving to [facility] for monitoring. despite the tachycardia she had no apparent symptoms. (6) B12 deficiency: Plan: Level <150 In light of worsening mentation over the last few months by report will start parenteral replacement - 1000mcg daily IM x 5 days, then 1000mcg PO daily thereafter Plan DVT proph - add heparin 5000 BID Admission and Anticipated Discharge Date Admission Date: October 25, 2023 Subjective per nursing had hard time going to bed last pm received melatonin and ultimately fell asleep she then slept all night last pm today - very tearful throughout the day but no agitation or aggressive behaviors eating fair during my visit she was pleasantly confused tearful at times but 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[place], 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 Review of Systems Review of Systems: Unobtainable due to cognitive status Physical Exam Physical Exam: gen - thin, pleasantly confused, NAD; tearful at times mouth - MMM neck - no obvious JVD heart - RRR, s1 s2, no murmur lungs - CTA b/l abd - soft NT ND BS+ ext - no edema, pulses 2+ b/l psych - oriented to person only; speech - word salad at times; does follow commands Results & Data Results & Data Vital Signs (Past 12 Hours) Vital Signs Temp Pulse Resp BP Pulse Ox O2 Del Method 10/27/23 15:07 36.4 C L 76 18 102/68 97 Room Air PG Care Time/CCT Total # of Minutes Spent Total Time Spent with Patient: Total time spent is greater than 50% in coordination of care (as documented) at patient's floor/unit and/or counseling patient: Coding Level of Care Code 33596 SUB INP/OBS CARE 09/22MIN Diagnoses Cognitive impairment R41.89 Failure to thrive in adult R62.7 Dementia with agitation F03.911 Mild malnutrition E44.1 Tachycardia R00.0 B12 deficiency E53.8
[2023-10-27] MEDS: MELATONIN 3 MG TAB PO SCH (21:09)
[2023-10-28] MEDS: HEPARIN SOD 5,000 UNIT/0.5 ML VIAL SQ SCH (10:45)
[2023-10-28] MEDS: GADOBUTROL 65ML VIAL IV ONE (12:18)
--- NOTE | 2023-10-28 12:37 | Magnetic Resonance Report ---
Brain MRI WITH AND WITHOUT CONTRAST HISTORY: rapid decline in mental status; strokes? TECHNIQUE: Multiplanar multisequence MRI of the brain was performed both before and after the intrave nous administration of contrast. COMPARISON STUDY: Head CT 10/25/2023. FINDINGS: A 5 mm hyperintense focus within the DWI sequences within the white matter of the right pos terior frontal lobe on image 17. This favors a subacute infarct. Motion artifact results in suboptima l evaluation of the brain. The midline structures appear intact. There is no mass, hematoma, midline shift. Moderate atrophic changes are noted. There is moderate periarticular white matter T2 hyperinte nsity. This favors microvascular ischemic change. The paranasal sinuses and mastoid air cells are jaspreet ar. Prior bilateral lens replacement. Postcontrast sequences show no areas of abnormal enhancement. IMPRESSION: 1. A 5 mm subacute infarct within the right posterior frontal lobe. 2. Moderate atrophy and moderate microvascular ischemic changes. ACT 112: Negative or not required by law. Electronically signed by: Addison Mccormick M.D. 10/28/2023 12:35 PM
[2023-10-28] MEDS: ASPIRIN 81 MG ECTAB PO SCH (15:28)
[2023-10-28 15:45] LABS: Bilirubin Direct 0.1 mg/dl (0-0.2); Bilirubin,Total 0.6 mg/dl (0.2-1.0); Total Protein 7.2 gm/dl (6.0-8.3)
[2023-10-28] MEDS ORDERED: risperiDONE 0.5 MG TABLET PO PRN (16:58)
--- NOTE | 2023-10-28 16:59 | Hospitalist Progress Note ---
Date of Service October 28, 2023 Assessment & Plan (1) Stroke: Plan: small R sided frontal lobe CVA - subacute - on MRI brain today. I spoke with her POA Elsa by phone today. she confirmed that Mrs Wild has had mild memory issues for a couple of years but not severe enough to interfere with driving and performing ADLs. however, starting in Jun 2023, her functional status dropped off severely, speech became more challenging to understand, etc. her receptive speech, however, remained relatively intact. seeing that the MRI showed this small stroke I question if she has been having small vascular events over the last few months leading to her rapid decline. for her stroke start 81mg of aspirin for secondary prevention. check lipids while here. echo w/o source of thrombus. needs CTA head/neck. if tele shows a.fib then anticoagulation will be needed. (2) Cognitive impairment: Plan: see #1 above. suspect vascular in origin, but cannot rule out nutritional def contributing. check B1 level. while awaiting level place on IV thiamine. replace low B12. 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 consider placing back on antidepressant (had been on celexa in the recent past but was stopped?). (3) Failure to thrive in adult: Plan: Could consider remeron at bedtime - had been taking SSRI up until recently. Remeron may help night-time sleep, eating, and her depression. (4) Dementia with agitation: Plan: see above. replace low B12. check B1 level. due to severe emotional lability and ?hallucinations per staff will start low- dose risperdal 0.25mg HS. cont melatonin. consider SSRI or remeron - ?underlying depression? (5) Mild malnutrition: Plan: BMI 19, with recent weight loss of about 2-3 kg over the last few months. Will supplement B12. Give MVI. Check a B1 level as well. Add thiamine IV while awaiting level. (6) Tachycardia: Plan: during my exam on 10/26 she had an episode of tachycardia - very regular - with rate of at least 150 BPM, probably closer to 160 BPM. I ordered STAT EKG. by the time it was done a few minutes later she was back in NSR with rate <80. echo obtained - normal LV function, acceptable valve function. recent electrolytes and TSH were wnl. a.fib? a.flutter? SVT? move to telemetry. if afib is found this may be the reason for her subacute CVA seen. (7) B12 deficiency: Plan: Level <150 In light of worsening mentation over the last few months by report will start parenteral replacement - 1000mcg daily IM x 5 days, then 1000mcg PO daily thereafter Plan DVT proph - heparin 5000 BID updated pt's POA Elsa by phone today attempted to call pt's but he did not order picker phone Admission and Anticipated Discharge Date Admission Date: October 25, 2023 Subjective patient had MRI brain this am due to her rapidly progressive mental status decline over the last few months/weeks MRI brain + for small R frontal lobe CVA -- subacute she was transferred to telemetry upon transfer her visited after he left she was weeping uncontrollably and was emotionally labile during my visit she was crying profusely and simply unable to tell me why she was crying I was able to re-direct her several times 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 tried to distract her by giving her a word search to work on, etc otherwise she was unable to provide any meaningful history or ROS Review of Systems Review of Systems: Unobtainable due to cognitive status Physical Exam Physical Exam: gen - thin, very confused, expressive aphasia with severe "word salad" at times; tearful mouth - MMM neck - no obvious JVD heart - RRR, s1 s2, no murmur lungs - CTA b/l abd - soft NT ND BS+ ext - no edema, pulses 2+ b/l psych - oriented to person only neuro - no obvious focal deficits, 5/5 motor strength b/l upper & lower exts; no facial droop; expressive aphasia as noted above Results & Data Results & Data Vital Signs (Past 12 Hours) Vital Signs Temp Pulse Pulse Pulse Resp BP BP 10/28/23 15:34 83 10/28/23 13:47 36.5 C 113 H 18 127/72 10/28/23 12:41 36.6 C 62 16 106/71 10/28/23 08:02 36.5 C 66 16 98/50 L Pulse Ox O2 Del Method 10/28/23 15:34 10/28/23 13:47 95 Room Air 10/28/23 12:41 100 Room Air 10/28/23 08:02 99 Room Air Laboratory Results Laboratory Results 10/28/23 15:13 Total Bilirubin 0.6 Direct Bilirubin 0.1 AST 17 ALT 15 Alkaline Phosphatase 46 Total Protein 7.2 Albumin 4.0 Diagnostic Findings Brain MRI 10/28/23 09:49 Brain MRI WITH AND WITHOUT CONTRAST HISTORY: rapid decline in mental status; strokes? TECHNIQUE: Multiplanar multisequence MRI of the brain was performed both before and after the intravenous administration of contrast. COMPARISON STUDY: Head CT 10/25/2023. FINDINGS: A 5 mm hyperintense focus within the DWI sequences within the white matter of the right posterior frontal lobe on image 17. This favors a subacute infarct. Motion artifact results in suboptimal evaluation of the brain. The midline structures appear intact. There is no mass, hematoma, midline shift. Moderate atrophic changes are noted. There is moderate periarticular white matter T2 hyperintensity. This favors microvascular ischemic change. The paranasal sinuses and mastoid air cells are clear. Prior bilateral lens replacement. Postcontrast sequences show no areas of abnormal enhancement. IMPRESSION: 1. A 5 mm subacute infarct within the right posterior frontal lobe. 2. Moderate atrophy and moderate microvascular ischemic changes. ACT 112: Negative or not required by law. Electronically signed by: Addison Mccormick M.D. 10/28/2023 12:35 PM PG Care Time/CCT Total # of Minutes Spent Total Time Spent with Patient: Total time spent is greater than 50% in coordination of care (as documented) at patient's floor/unit and/or counseling patient: Coding Level of Care Code 63374 SUB INP/OBS CARE 3/50MIN Diagnoses Stroke I63.9 Cognitive impairment R41.89 Failure to thrive in adult R62.7 Dementia with agitation F03.911 Mild malnutrition E44.1 Tachycardia R00.0 B12 deficiency E53.8
[2023-10-28] MEDS: THIAMINE HCL 500 MG in SODIUM CHLORIDE 0.9% 50 ML IV SCH (18:03)
[2023-10-28] MEDS: risperiDONE 0.5 MG TABLET PO SCH (19:39)
[2023-10-29 08:45] LABS: BUN Creatinine Ratio 26.7 (10-20); Creatinine Clr Calc Pharmacy 48.6 ml/min; Est GFR (African American) 95.7 ml/min; Est GFR (Non-African American) 82.5 ml/min
[2023-10-29] MEDS: OPTIRAY 320 125ml IV ONE (10:59)
--- NOTE | 2023-10-29 11:49 | CT Scan Report ---
CT angio head w con, CT angio neck with con CLINICAL HISTORY: 88 years-old Female with R frontal lobe CVA. Acute stroke like symptoms COMPARISON STUDY: Brain MRI 10/28/2023 TECHNIQUE: Following the IV administration of 116 cc of Optiray, CT angiogram of the head and neck wa s performed from the aortic arch to the skull apex. Images are reviewed in the axial, sagittal, and c oronal planes. 3-D MIPS images are created and assessed. IV contrast was administered without complic ation. All measurements were obtained according to NASCET criteria. A dose lowering technique was uti lized adhering to the principles of ALARA. CT DOSE: 334.37 mGy.cm FINDINGS: Motion degraded exam. CT ANGIOGRAM OF THE HEAD AND NECK: Three-vessel morphology of the thoracic aorta arch. Patency of the innominate and images including ar teries. The common carotid arteries are widely patent. There is less than 50% stenosis of the left IC A. There is approximately 40% stenosis at the origin of the right ICA. The bilateral anterior and mid dle cerebral arteries are also patent with mild multifocal stenosis. The vertebrobasilar system and p osterior cerebral arteries are patent with mild multifocal stenosis. There is no aneurysm, high-grade stenosis, or proximal branch occlusion identified. Dural sinuses appear patent. Involutional changes with chronic microvascular ischemic disease redemonstrated. The previously descr ibed subcentimeter lacunar infarct in the superior right frontal lobe is not identified by CT. Prior bilateral lens repair. Multinodular thyroid goiter with nodules measuring up to 11 mm. Clear lung api yue. Unremarkable soft tissues. No acute fracture. IMPRESSION: . 1. The previously noted subcentimeter lacunar infarct of the superior right frontal lobe seen on the MRI from 10/28/[address] 2. CTA of the head and neck demonstrates no aneurysm, dissection, high-grade stenosis or arterial occ lusion. ACT 112: Negative or not required by law. The above report was generated using voice recognition software. It may contain grammatical, syntax o r spelling errors. Electronically signed by: Bhupendra Larsen M.D. 10/29/2023 11:47 AM
--- NOTE | 2023-10-29 14:45 | Hospitalist Progress Note ---
Date of Service October 29, 2023 Assessment & Plan (1) Stroke: Plan: small R sided frontal lobe CVA - subacute - on MRI brain. I spoke with her POA Elsa by phone 10/28/23. she confirmed that Mrs Wild has had mild memory issues for a couple of years but not severe enough to interfere with driving and performing ADLs. however, starting in Jun 2023, her functional status dropped off severely, speech became more challenging to understand, etc. her receptive speech, however, remained relatively intact. seeing that the MRI showed this small stroke I question if she has been having small vascular events over the last few months leading to her rapid decline. cont asa 81mg aspirin for secondary prevention. check lipids in am. echo w/o source of thrombus. CTA head/neck with some atherosclerosis but no significant stenosis. if tele shows a.fib then anticoagulation will be needed. (2) Cognitive impairment: Plan: see #1 above. suspect vascular in origin, but cannot rule out nutritional def contributing. checked B1 level. while awaiting level cont IV thiamine. replace low B12. 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 (3) Failure to thrive in adult: Plan: cont MVI cont B12 supplementation cont B1 supplementation (4) Dementia with agitation: Plan: see above. replace low B12. increase risperdal to 0.5mg HS. cont melatonin. consider SSRI or remeron - ?underlying depression? (5) Mild malnutrition: Plan: BMI 19, with recent weight loss of about 2-3 kg over the last few months. Will supplement B12. Give MVI. Check a B1 level as well. Cont thiamine IV while awaiting level. (6) Tachycardia: Plan: during my exam on 10/26 she had an episode of tachycardia - very regular - with rate of at least 150 BPM, probably closer to 160 BPM. I ordered STAT EKG. by the time it was done a few minutes later she was back in NSR with rate <80. echo obtained - normal LV function, acceptable valve function. recent electrolytes and TSH were wnl. had 3 minute asymptomatic episode of what appears to be PAT or SVT. morphology does not look like a.flutter (2:1). does not look like a.fib. if afib is found this may be the reason for her subacute CVA seen. (7) B12 deficiency: Plan: Level <150 In light of worsening mentation over the last few months by report started parenteral replacement - 1000mcg daily IM x 5 days, then 1000mcg PO daily thereafter last dose of parenteral replacement is tomorrow Plan DVT proph - heparin 5000 BID updated pt's POA Elsa by phone yesterday updated pt's at bedside today Admission and Anticipated Discharge Date Admission Date: October 25, 2023 Subjective tele yesterday showed a 3-minute episode of what appears to be PAT, rate 150-160 spontaneous termination no symptoms from the event otherwise NSR on tele during my visit patient was very emotional, tearful/crying - but could be redirected by asking her direct questions about her life due to significant expressive aphasia unable to elicit any history or ROS was at bedside during the visit Review of Systems Review of Systems: Unobtainable due to cognitive status Physical Exam Physical Exam: gen - thin, confused, expressive aphasia with word salad at times; tearful - much like yesterday mouth - MMM neck - no obvious JVD heart - RRR, s1 s2, no murmur lungs - CTA b/l abd - soft NT ND BS+ ext - no edema, pulses 2+ b/l psych - oriented to person only neuro - no obvious focal deficits, expressive aphasia as above Results & Data Results & Data Vital Signs (Past 12 Hours) Vital Signs Temp Pulse Pulse Resp BP Pulse Ox O2 Del Method 10/29/23 11:10 36.5 C 78 18 115/75 99 Room Air 10/29/23 09:00 Room Air 10/29/23 08:00 66 10/29/23 07:26 36.5 C 69 18 101/61 99 Room Air 10/29/23 03:18 36.5 C 89 18 118/64 96 Room Air Laboratory Results Laboratory Results - last 24 hr 10/28/23 10/29/23 15:13 08:00 Sodium 139 Potassium 4.0 Chloride 108 H Carbon Dioxide 25 Anion Gap 6 BUN 16 Creatinine 0.60 Est Cr Clr Drug Dosing 48.6 Est GFR ( Amer) 95.7 Est GFR (Non-Af Amer) 82.5 BUN/Creatinine Ratio 26.7 H Glucose 88 Calcium 9.0 Total Bilirubin 0.6 Direct Bilirubin 0.1 AST 17 ALT 15 Alkaline Phosphatase 46 Total Protein 7.2 Albumin 4.0 PG Care Time/CCT Total # of Minutes Spent Total Time Spent with Patient: Total time spent is greater than 50% in coordination of care (as documented) at patient's floor/unit and/or counseling patient: Coding Level of Care Code 51734 SUB INP/OBS CARE 2/35MIN Diagnoses Stroke I63.9 Cognitive impairment R41.89 Failure to thrive in adult R62.7 Dementia with agitation F03.911 Mild malnutrition E44.1 Tachycardia R00.0 B12 deficiency E53.8
[2023-10-29] MEDS: risperiDONE 0.5 MG TABLET PO SCH (20:12)
[2023-10-30 06:51] LABS: Chol HDL Ratio 3.2 (0-5)
[2023-10-30] MEDS: ATORVASTATIN 40 MG TAB PO SCH (09:42)
--- NOTE | 2023-10-30 19:13 | Hospitalist Progress Note ---
Date of Service October 30, 2023 Assessment & Plan (1) Stroke: Plan: small R sided frontal lobe CVA - subacute - on MRI brain. I spoke with her POA Elsa by phone 10/28/23. she confirmed that Mrs Wild has had mild memory issues for a couple of years but not severe enough to interfere with driving and performing ADLs. however, starting in Jun 2023, her functional status dropped off severely, speech became more challenging to understand, etc. her receptive speech, however, remained relatively intact. seeing that the MRI showed this small stroke I question if she has been having small vascular events over the last few months leading to her rapid decline. cont asa 81mg aspirin for secondary prevention. start lipitor 40mg daily -- LDL noted (106). echo w/o source of thrombus. CTA head/neck with some atherosclerosis but no significant stenosis. if tele shows a.fib then anticoagulation will be needed. thus far we have only seen a couple of episodes of what appears to be PAT. (2) Cognitive impairment: Plan: see #1 above. suspect vascular in origin, but cannot rule out nutritional def contributing. checked B1 level. while awaiting level cont IV thiamine. replace low B12. 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 start zoloft 12.5mg HS tonight. (3) Failure to thrive in adult: Plan: cont MVI cont B12 supplementation cont B1 supplementation (4) Dementia with agitation: Plan: see above. replace low B12. cont risperdal 0.5mg HS. cont melatonin. start zoloft 12.5mg daily for possible depression. defer on cholinesterase inhibitor at this time. (5) Mild malnutrition: Plan: BMI 19, with recent weight loss of about 2-3 kg over the last few months. Will supplement B12. Give MVI. Check a B1 level as well. Cont thiamine while awaiting level. (6) Tachycardia: Plan: during my exam on 10/26 she had an episode of tachycardia - very regular - with rate of at least 150 BPM, probably closer to 160 BPM. I ordered STAT EKG. by the time it was done a few minutes later she was back in NSR with rate <80. echo obtained - normal LV function, acceptable valve function. recent electrolytes and TSH were wnl. had 3 minute asymptomatic episode of what appeared to be PAT on 10/28/23. morphology did not look like a.flutter (2:1) but can't rule it out 100%. did not look like a.fib. if afib is found while here this may be the reason for her subacute CVA seen. (7) B12 deficiency: Plan: Level <150 In light of worsening mentation over the last few months by report started parenteral replacement - 1000mcg daily IM x 5 days, then 1000mcg PO daily thereafter last dose of parenteral replacement is today Plan DVT proph - heparin 5000 BID updated pt's POA Elsa by phone 2 days ago updated pt's at bedside yesterday dispo - [facility]? Admission and Anticipated Discharge Date Admission Date: October 25, 2023 Subjective tele overnight wnl - NSR patient was a little less emotionally labile during the visit still with word-finding difficulties and word salad speech but she is directable and follows commands unable to gain any meaningful history or ROS Review of Systems Review of Systems: Unobtainable due to cognitive status Physical Exam Physical Exam: gen - thin, confused, expressive aphasia with word salad but a little better than previous visits; some tearfulness but less than yesterday mouth - MMM neck - no obvious JVD heart - RRR, s1 s2, no murmur lungs - CTA b/l abd - soft NT ND BS+ ext - no edema, pulses 2+ b/l Results & Data Results & Data Vital Signs (Past 12 Hours) Vital Signs Temp Pulse Resp BP Pulse Ox O2 Del Method 10/30/23 19:05 36.7 C 79 20 130/67 97 Room Air 10/30/23 15:13 36.4 C L 94 H 18 124/73 96 Room Air 10/30/23 11:50 36.6 C 74 18 108/64 98 Room Air 10/30/23 07:52 36.6 C 71 16 116/70 98 Room Air Laboratory Results Laboratory Results - last 24 hr 10/30/23 05:23 Triglycerides 96 Cholesterol 181 LDL Cholesterol, Calc 106 VLDL Cholesterol, Calc 19 HDL Cholesterol 56 Cholesterol/HDL Ratio 3.2 PG Care Time/CCT Total # of Minutes Spent Total Time Spent with Patient: Total time spent is greater than 50% in coordination of care (as documented) at patient's floor/unit and/or counseling patient: Coding Level of Care Code 62019 SUB INP/OBS CARE MIN Diagnoses Stroke I63.9 Cognitive impairment R41.89 Failure to thrive in adult R62.7 Dementia with agitation F03.911 Mild malnutrition E44.1 Tachycardia R00.0 B12 deficiency E53.8
[2023-10-30] MEDS: THIAMINE HCL 100 MG TAB PO SCH (21:00)
[2023-10-30] MEDS: SERTRALINE HCL 50 MG TABLET PO SCH (21:01)
[2023-10-31] MEDS: CYANOCOBALAMIN (B-12) 500 MCG TABLET PO SCH (09:20)
--- NOTE | 2023-10-31 19:41 | Hospitalist Progress Note ---
Date of Service October 31, 2023 Assessment & Plan (1) Stroke: Plan: small R sided frontal lobe CVA - subacute - on MRI brain. I spoke with her POA Elsa by phone 10/28/23. she confirmed that Mrs Wild has had mild memory issues for a couple of years but not severe enough to interfere with driving and performing ADLs. however, starting in Jun 2023, her functional status dropped off severely, speech became more challenging to understand, falling asleep in her car, etc. 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 her receptive speech, however, has remained relatively intact. seeing that the MRI showed this small stroke I question if she has been having small vascular events over the last few months leading to her rapid decline. cont asa 81mg aspirin for secondary prevention. cont lipitor 40mg daily -- LDL noted (106). echo w/o source of thrombus. CTA head/neck with some atherosclerosis but no significant stenosis. if tele shows a.fib then anticoagulation will be needed. thus far we have only seen a couple of brief episodes of what appears to be PAT. post-discharge recommend 30-day event monitor. (2) Cognitive impairment: Plan: see #1 above. suspect vascular in origin, but cannot rule out nutritional def contributing. checked B1 level. while awaiting level cont IV thiamine. replace low B12. 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 started zoloft 12.5mg HS on 10/30/23. (3) Failure to thrive in adult: Plan: cont MVI cont B12 supplementation cont B1 supplementation -- B1 level still pending (4) Dementia with agitation: Plan: see above. replace low B12. cont risperdal 0.5mg HS. cont melatonin. cont zoloft 12.5mg daily for possible depression. defer on cholinesterase inhibitor at this time. (5) Mild malnutrition: Plan: BMI 19, with recent weight loss of about 2-3 kg over the last few months. Will supplement B12. Give MVI. Check a B1 level as well. Cont thiamine while awaiting level. (6) Tachycardia: Plan: during my exam on 10/26 she had an episode of tachycardia - very regular - with rate of at least 150 BPM, probably closer to 160 BPM. I ordered STAT EKG. by the time it was done a few minutes later she was back in NSR with rate <80. echo obtained - normal LV function, acceptable valve function. recent electrolytes and TSH were wnl. had 3 minute asymptomatic episode of what appeared to be PAT on 10/28/23. morphology did not look like a.flutter (2:1) but can't rule it out 100%. did not look like a.fib. another 1-2 minute episode of PAT - about 150-160 BPM- on 10/30/23. no symptoms from such. if afib is found this may be the reason for her subacute CVA seen. (7) B12 deficiency: Plan: Level <150 In light of worsening mentation over the last few months by report started parenteral replacement - 1000mcg daily IM x 5 days, then 1000mcg PO daily thereafter last dose of parenteral replacement is today Plan DVT proph - heparin 5000 BID. Constipation - add miralax daily, add senna daily. updated pt's POA - Elsa ([phone]) - by phone 3 days ago as well as on 10/31/23. updated pt's briefly by phone this evening, 10/31/23. [facility] - SNF portion for rehab, then assisted living after that? Admission and Anticipated Discharge Date Admission Date: October 25, 2023 Subjective tele yesterday - brief (1-2 minutes) episode of what appears to be PAT no a.fib no obvious a.flutter eating well per staff no BM since admission patient with episodes of crying but less frequent today during my rounds she was resting comfortably in bed unable to elicit any history or ROS Review of Systems Review of Systems: Unobtainable due to cognitive status (and aphasia ) Physical Exam Physical Exam: gen - thin, less emotional lability/crying today; more cheerful, smiling, even laughing today; receptive aphasia is minimal; expressive aphasia is much worse; NAD mouth - MMM neck - no obvious JVD heart - RRR, s1 s2, no murmur lungs - CTA b/l abd - soft NT ND BS+ ext - no edema, pulses 2+ b/l neuro - nonfocal neuro exam Results & Data Results & Data Vital Signs (Past 12 Hours) Vital Signs Temp Pulse Pulse Resp BP Pulse Ox O2 Del Method 10/31/23 19:32 37.1 C 73 18 111/70 99 Room Air 10/31/23 16:36 36.6 C 81 19 136/71 96 Room Air 10/31/23 16:04 81 10/31/23 10:07 36.4 C L 78 18 103/61 99 Room Air 10/31/23 07:52 66 PG Care Time/CCT Total # of Minutes Spent Total Time Spent with Patient: Total time spent is greater than 50% in coordination of care (as documented) at patient's floor/unit and/or counseling patient: Coding Level of Care Code 69042 SUB INP/OBS CARE 3/50MIN Diagnoses Stroke I63.9 Cognitive impairment R41.89 Failure to thrive in adult R62.7 Dementia with agitation F03.911 Mild malnutrition E44.1 Tachycardia R00.0 B12 deficiency E53.8
[2023-10-31] MEDS: POLYETHYLENE (MIRALAX) 17 GM PACK PO SCH (21:16)
[2023-11-01 06:25] LABS: BUN Creatinine Ratio 26.9 (10-20); Calcium 9.1 mg/dl (8.6-10.3); Creatinine Clr Calc Pharmacy 42.2 ml/min; Est GFR (African American) 92.2 ml/min; Est GFR (Non-African American) 79.6 ml/min; Potassium 4.1 mmol/L (3.5-5.1)
[2023-11-01] MEDS: SENNA 8.6 MG TAB PO SCH (08:25)
--- NOTE | 2023-11-01 21:14 | Hospitalist Progress Note ---
Date of Service November 01, 2023 Assessment & Plan (1) Stroke: Plan: small R sided frontal lobe CVA - subacute - on MRI brain. mild memory issues for a couple of years but not severe enough to interfere with driving and performing ADLs. however, starting in Jun 2023, her functional status dropped off severely, speech became more challenging to understand, falling asleep in her car, etc. 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 her receptive speech, however, has remained relatively intact. seeing that the MRI showed this small stroke I question if she has been having small vascular events over the last few months leading to her rapid decline. cont asa 81mg aspirin for secondary prevention. cont lipitor 40mg daily -- LDL noted (106). echo w/o source of thrombus. CTA head/neck with some atherosclerosis but no significant stenosis. if tele shows a.fib then anticoagulation will be needed. thus far we have only seen a couple of brief episodes of what appears to be PAT. post-discharge recommend 30-day event monitor. (2) Cognitive impairment: Plan: see #1 above. suspect vascular in origin, but cannot rule out nutritional def contributing. checked B1 level - still pending. while awaiting level cont IV thiamine. replace low B12. will treat for possible depression causing "pseudo" dementia with re-initiation of SSRI (had been on celexa in the recent past but was stopped). started zoloft 12.5mg HS on 10/30/23. Low mood/sadness noted 10/31 (3) Failure to thrive in adult: Plan: cont MVI cont B12 supplementation cont B1 supplementation -- B1 level still pending (4) Dementia with agitation: Plan: see above. replace low B12. cont risperdal 0.5mg HS. cont melatonin. cont zoloft 12.5mg daily for possible depression. defer on cholinesterase inhibitor at this time. (5) Mild malnutrition: Plan: BMI 19, with recent weight loss of about 2-3 kg over the last few months. Will supplement B12. Give MVI. Check a B1 level as well. Cont thiamine while awaiting level. (6) Tachycardia: Plan: 10/26 had brief episode of tachycardia with rate 150-160 but by time EKG was completed was in NSR echo obtained - normal LV function, acceptable valve function. recent electrolytes and TSH were wnl. had 3 minute asymptomatic episode of what appeared to be PAT on 10/28/23. morphology did not look like a.flutter (2:1) but can't rule it out 100%. did not look like a.fib. another 1-2 minute episode of PAT - about 150-160 BPM- on 10/30/23. no symptoms from such. if afib is found this may be the reason for her subacute CVA seen. (7) B12 deficiency: Plan: Level <150 completed parenteral replacement - 1000mcg daily IM x 5 days, then 1000mcg PO daily thereafter Plan DVT proph - heparin 5000 BID. Constipation - miralax, senna daily. updated pt's POA - Elsa ([phone]) - by phone last 10/31/23. updated pt's by phone 10/31/23. dispo - potentially [facility], discussed with care coord Admission and Anticipated Discharge Date Admission Date: October 25, 2023 Subjective sitting in chair, RN at side, confused as to why/where she is but reflecting on independence and friends she has lost and feels sad Physical Exam 2 Physical Exam: gen - frail appearing woman sitting in chair by window lungs - CTAB no rrw CV - reg no mrg no jvd abd -s nt nd +BT skin - w/d no rashes ext - wwp no edema neuro - alert, oriented to self, confused, speaks in phrases, face symmetric, moves UE and LE equally, no PD psych - sad affect and mood Results & Data Results & Data Vital Signs (Past 12 Hours) Vital Signs Temp Pulse Resp BP Pulse Ox O2 Del Method 11/01/23 19:57 36.6 C 78 18 130/78 96 Room Air 11/01/23 16:26 36.6 C 78 20 125/74 97 Room Air 11/01/23 11:18 36.3 C L 77 20 108/62 97 Room Air Laboratory Results 10/25/23 15:18 11/01/23 05:44 PG Care Time/CCT Total # of Minutes Spent Total Time Spent with Patient: Total time spent is greater than 50% in coordination of care (as documented) at patient's floor/unit and/or counseling patient: Coding Level of Care Code 06264 SUB INP/OBS CARE 09/22MIN Diagnoses Stroke I63.9 Cognitive impairment R41.89 Failure to thrive in adult R62.7 Dementia with agitation F03.911 Mild malnutrition E44.1 Tachycardia R00.0 B12 deficiency E53.8
--- NOTE | 2023-11-02 18:55 | Hospitalist Progress Note ---
Date of Service November 02, 2023 Assessment & Plan (1) Stroke: Plan: small R sided frontal lobe CVA - subacute - on MRI brain. mild memory issues for a couple of years but not severe enough to interfere with driving and performing ADLs. however, starting in Jun 2023, her functional status dropped off severely, speech became more challenging to understand, falling asleep in her car, etc. 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 her receptive speech, however, has remained relatively intact. seeing that the MRI showed this small stroke I question if she has been having small vascular events over the last few months leading to her rapid decline. cont asa 81mg aspirin for secondary prevention. cont lipitor 40mg daily -- LDL noted (106). echo w/o source of thrombus. CTA head/neck with some atherosclerosis but no significant stenosis. thus far we have only seen a couple of brief episodes of what appears to be PAT. -reviewed tele last 48h no further episodes post-discharge recommend 30-day event monitor. (2) Cognitive impairment: Plan: see #1 above. suspect vascular in origin, but cannot rule out nutritional def contributing. checked B1 level - still pending 11/01. while awaiting level cont IV thiamine. replace low B12. will treat for possible depression causing "pseudo" dementia with re-initiation of SSRI (had been on celexa in the recent past but was stopped). started zoloft 12.5mg HS on 10/30/23. Low mood/sadness noted 10/31 but better 11/01 -evaluate for dose increase in 2 weeks (3) Failure to thrive in adult: Plan: cont MVI cont B12 supplementation cont B1 supplementation -- B1 level still pending (4) Dementia with agitation: Plan: see above. replace low B12. cont risperdal 0.5mg HS. cont melatonin. cont zoloft 12.5mg daily for possible depression. defer on cholinesterase inhibitor at this time. (5) Mild malnutrition: Plan: BMI 19, with recent weight loss of about 2-3 kg over the last few months. Will supplement B12. Give MVI. Check a B1 level as well. Cont thiamine while awaiting level. (6) Tachycardia: Plan: 10/26 had brief episode of tachycardia with rate 150-160 but by time EKG was completed was in NSR echo obtained - normal LV function, acceptable valve function. recent electrolytes and TSH were wnl. had 3 minute asymptomatic episode of what appeared to be PAT on 10/28/23. morphology did not look like a.flutter (2:1) but can't rule it out 100%. did not look like a.fib. another 1-2 minute episode of PAT - about 150-160 BPM- on 10/30/23. no symptoms from such. if afib is found this may be the reason for her subacute CVA seen. (7) B12 deficiency: Plan: Level <150 completed parenteral replacement - 1000mcg daily IM x 5 days, continue 1000mcg PO daily Plan DVT proph - heparin 5000 BID. Constipation - miralax, senna daily. updated pt's POA - Elsa ([phone]) - by phone last 10/31/23. updated pt's by phone 10/31/23, in room 3/6. dispo - potentially [facility] then [facility] Admission and Anticipated Discharge Date Admission Date: October 25, 2023 Subjective sitting by window and her is visiting. mood improved, spirits good today remains forgetful, I explained again about the stroke and plan of care going forward speech seems more fluent today Physical Exam Physical Exam: gen - sitting by window with lungs - CTAB no rrw CV - reg no mrg no jvd abd -s nt nd +BT skin - w/d no rashes ext - wwp no edema neuro - alert, oriented to self, confused, speech fluent today, face symmetric, moves UE and LE equally, no PD psych - normal affect and mood, not sad today Results & Data Results & Data Vital Signs (Past 12 Hours) Vital Signs Temp Pulse Pulse Resp BP Pulse Ox O2 Del Method 11/02/23 15:08 86 11/02/23 15:02 36.4 C L 78 18 132/65 99 Room Air 11/02/23 11:17 36.4 C L 80 16 120/70 98 Room Air 11/02/23 07:41 65 11/02/23 07:11 36.4 C L 73 18 110/64 97 Room Air PG Care Time/CCT Total # of Minutes Spent Total Time Spent with Patient: Total time spent is greater than 50% in coordination of care (as documented) at patient's floor/unit and/or counseling patient: Coding Level of Care Code 48067 SUB INP/OBS CARE Diagnoses Stroke I63.9 Cognitive impairment R41.89 Failure to thrive in adult R62.7 Dementia with agitation F03.911 Mild malnutrition E44.1 Tachycardia R00.0 B12 deficiency E53.8
--- NOTE | 2023-11-03 18:37 | Hospitalist Progress Note ---
Date of Service November 03, 2023 Assessment & Plan (1) Stroke: Plan: small R sided frontal lobe CVA - subacute - on MRI brain. mild memory issues for a couple of years but not severe enough to interfere with driving and performing ADLs. however, starting in Jun 2023, her functional status dropped off severely, speech became more challenging to understand, falling asleep in her car, etc. 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 her receptive speech, however, has remained relatively intact. seeing that the MRI showed this small stroke I question if she has been having small vascular events over the last few months leading to her rapid decline. cont asa 81mg aspirin for secondary prevention. cont lipitor 40mg daily -- LDL noted (106). echo w/o source of thrombus. CTA head/neck with some atherosclerosis but no significant stenosis. thus far we have only seen a couple of brief episodes of what appears to be PAT. frontal lobe infarct may be significantly affecting her mood lability post-discharge recommend 30-day event monitor. (2) Cognitive impairment: Plan: see #1 above. suspect vascular in origin, but cannot rule out nutritional def contributing. checked B1 level - still pending 11/01. while awaiting level cont IV thiamine. replace low B12. will treat for possible depression causing "pseudo" dementia with re-initiation of SSRI (had been on celexa in the recent past but was stopped). started zoloft 12.5mg HS on 10/30/23. Low mood/sadness noted intermittently -evaluate for dose increase in 2 weeks - continue at bedtime risperidone, will add 0.25 mg a.m. dose to help with anxiety and mood lability (3) Failure to thrive in adult: Plan: cont MVI cont B12 supplementation cont B1 supplementation -- B1 level low normal range so will decrease to 100 mg daily maintenance dose (4) Dementia with agitation: Plan: see above. replace low B12. cont risperdal 0.25 AM and 0.5mg HS. cont melatonin. cont zoloft 12.5mg daily for possible depression. defer on cholinesterase inhibitor at this time. (5) Mild malnutrition: Plan: BMI 19, with recent weight loss of about 2-3 kg over the last few months. Will supplement B12. Give MVI. Check a B1 level as well. Cont thiamine while awaiting level. (6) Tachycardia: Plan: 10/26 had brief episode of tachycardia with rate 150-160 but by time EKG was completed was in NSR echo obtained - normal LV function, acceptable valve function. recent electrolytes and TSH were wnl. had 3 minute asymptomatic episode of what appeared to be PAT on 10/28/23. morphology did not look like a.flutter (2:1) but can't rule it out 100%. did not look like a.fib. another 1-2 minute episode of PAT - about 150-160 BPM- on 10/30/23. no symptoms from such. if afib is found this may be the reason for her subacute CVA seen. (7) B12 deficiency: Plan: Level <150 completed parenteral replacement - 1000mcg daily IM x 5 days, continue 1000mcg PO daily Plan DVT proph - heparin 5000 BID. Constipation - miralax, senna daily. updated pt's POA - Elsa ([phone]) - by phone last 10/31/23. updated pt's by phone 10/31/23, in room 11/01. dispo - discussed with care coordination - may need to evaluate for [facility] Admission and Anticipated Discharge Date Admission Date: October 25, 2023 Subjective sitting at window, has been drawing can't recall visiting yesterday afternoon, tearful about this very forgetful Physical Exam Physical Exam: PHYSICAL EXAMINATION Last 24h vital signs reviewed, see documentation in flowsheet General: comfortable appearing, sitting in chair at window HEENT: Normocephalic, atraumatic, pupils round and equal, sclerae anicteric, no conjunctival injection, moist mucus membranes Lungs: Normal respiratory effort. Clear to auscultation bilaterally. No RRW Heart: Regular rate and rhythm, no murmurs. No JVD Abdomen: Soft, nontender, nondistended. Bowel sounds present. Extremities: Warm, dry, well-perfused. No extremity edema. Neuro: Alert and oriented x self, forgetful and confused, speech fluent, face symmetric, moves 4 extremities well Psych: labile, sad affect and mood Results & Data Results & Data Vital Signs (Past 12 Hours) Vital Signs Temp Pulse Pulse Resp BP Pulse Ox O2 Del Method 11/03/23 16:00 36.5 C 76 18 118/77 97 Room Air 11/03/23 15:00 74 11/03/23 11:58 36.6 C 77 18 128/74 100 Room Air 11/03/23 09:00 36.5 C 79 18 114/72 99 Room Air 11/03/23 07:23 62 PG Care Time/CCT Total # of Minutes Spent Total Time Spent with Patient: Total time spent is greater than 50% in coordination of care (as documented) at patient's floor/unit and/or counseling patient: Coding Level of Care Code 51915 SUB INP/OBS CARE 2/35MIN Diagnoses Stroke I63.9 Cognitive impairment R41.89 Failure to thrive in adult R62.7 Dementia with agitation F03.911 Mild malnutrition E44.1 Tachycardia R00.0 B12 deficiency E53.8
[2023-11-03] MEDS: risperiDONE 0.5 MG TABLET PO SCH (23:35)
[2023-11-04] MEDS: THIAMINE HCL 100 MG TAB PO SCH (07:51)
--- NOTE | 2023-11-04 16:53 | Hospitalist Progress Note ---
Date of Service November 04, 2023 Assessment & Plan (1) Stroke: Plan: small R sided frontal lobe CVA - subacute - on MRI brain. mild memory issues for a couple of years but not severe enough to interfere with driving and performing ADLs. however, starting in Jun 2023, her functional status dropped off severely, speech became more challenging to understand, falling asleep in her car, etc. 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 her receptive speech, however, has remained relatively intact. seeing that the MRI showed this small stroke I question if she has been having small vascular events over the last few months leading to her rapid decline. cont asa 81mg aspirin for secondary prevention. cont lipitor 40mg daily -- LDL noted (106). echo w/o source of thrombus. CTA head/neck with some atherosclerosis but no significant stenosis. thus far we have only seen a couple of brief episodes of what appears to be PAT. Tele reviewed 11/03 no recent events not even PAT. Discontinued tele. frontal lobe infarct may be significantly affecting her mood lability post-discharge recommend 30-day event monitor - made referral (2) Cognitive impairment: Plan: see #1 above. 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 Decreased supplementation to 100 mg daily replaced low B12. will treat for possible depression causing "pseudo" dementia with re-initiation of SSRI (had been on celexa in the recent past but was stopped). started zoloft 12.5mg HS on 10/30/23. Low mood/sadness noted intermittently -evaluate for dose increase in 2 weeks (roughly 11/13) - continue at bedtime risperidone, added 0.25 mg a.m. dose to help with anxiety and mood lability (3) Failure to thrive in adult: Plan: cont MVI cont B12 supplementation cont B1 supplementation (4) Dementia with agitation: Plan: see above. defer on cholinesterase inhibitor at this time. (5) Mild malnutrition: Plan: BMI 19, with recent weight loss of about 2-3 kg over the last few months. See above re supplementation (6) Tachycardia: Plan: 10/26 had brief episode of tachycardia with rate 150-160 but by time EKG was completed was in NSR echo obtained - normal LV function, acceptable valve function. recent electrolytes and TSH were wnl. had 3 minute asymptomatic episode of what appeared to be PAT on 10/28/23. morphology did not look like a.flutter (2:1) but can't rule it out 100%. did not look like a.fib. another 1-2 minute episode of PAT - about 150-160 BPM- on 10/30/23. no symptoms from such. since then no episodes made referral for ambulatory heart monitor (7) B12 deficiency: Plan: Level <150 completed parenteral replacement - 1000mcg daily IM x 5 days, continue 1000mcg PO daily Plan DVT proph - heparin 5000 BID. Constipation - miralax, senna daily. updated pt's POA - Elsa ([phone]) - by phone last 10/31/23. updated pt's by phone 10/31/23, in room 11/01. dispo - discussed with care coordination - may need to evaluate for [facility] still requiring 1:1 supervision Admission and Anticipated Discharge Date Admission Date: October 25, 2023 Subjective confused but better spirits today. sitting, eating breakfast. Physical Exam Physical Exam: PHYSICAL EXAMINATION Last 24h vital signs reviewed, see documentation in flowsheet General: comfortable appearing, sitting on bed eating breakfast HEENT: Normocephalic, atraumatic, pupils round and equal, sclerae anicteric, no conjunctival injection, moist mucus membranes Lungs: Normal respiratory effort. Clear to auscultation bilaterally. No RRW Heart: Regular rate and rhythm, no murmurs. No JVD Abdomen: Soft, nontender, nondistended. Bowel sounds present. Extremities: Warm, dry, well-perfused. No extremity edema. Neuro: Alert and oriented x self, forgetful and confused, speech fluent, face symmetric, moves 4 extremities well - unchanged Psych: normal affect and mood Results & Data Results & Data Vital Signs (Past 12 Hours) Vital Signs Temp Pulse Pulse Resp BP Pulse Ox O2 Del Method 11/04/23 15:33 80 11/04/23 14:56 36.3 C L 79 18 138/79 97 Room Air 11/04/23 11:10 36.3 C L 71 16 121/64 98 Room Air 11/04/23 07:03 36.3 C L 79 18 114/64 98 Room Air 11/04/23 07:00 65 PG Care Time/CCT Total # of Minutes Spent Total Time Spent with Patient: Total time spent is greater than 50% in coordination of care (as documented) at patient's floor/unit and/or counseling patient: Coding Level of Care Code 46909 SUB INP/OBS CARE Diagnoses Stroke I63.9 Cognitive impairment R41.89 Failure to thrive in adult R62.7 Dementia with agitation F03.911 Mild malnutrition E44.1 Tachycardia R00.0 B12 deficiency E53.8
--- NOTE | 2023-11-05 06:37 | Communication Note ---
Date of Service: November 05, 2023 Notified by nursing that patient appeared to go into a. fib at approximately 6:30a.m. with at rate of 106. I ordered an EKG as well as a metabolic panel and magnesium level as most recent lab work was from several days prior.
[2023-11-05] MEDS: METOPROLOL SUCC 25MG EXT REL TAB PO SCH (10:35)
[2023-11-05] MEDS: APIXABAN 5 MG TABLET PO SCH (10:36)
--- NOTE | 2023-11-05 12:04 | Cardiology Consultation ---
Date of Consultation November 05, 2023 Assessment & Plan (1) New onset atrial flutter: (2) Mild dementia: Plan 88-year-old woman with no significant cardiac history, recent echo with normal EF and mild to moderate valvular disease (MR/TR), noted to develop atrial flutter after a prolonged period of sinus rhythm during her current hospitalization. She is tolerating the tachycardia very well, no symptoms and heart rate is already improving after initial dose of metoprolol just a few hours ago. Continue telemetry, continue metoprolol and adjust dose to achieve ventricular rate 80-100 bpm. If dysrhythmia persists, may consider amiodarone to achieve rh ythm control. Apixaban initiated for anticoagulation. Could use reduced dose of 2.5 mg twice daily given weight less than 60 kg and age greater than 80. Will check repeat electrolytes including magnesium to ensure electrolyte abnormality does not play a role in her dysrhythmia. Her valvular disease is not clinically significant at this time, but may predispose her to further atrial dysrhythmias. Will continue to follow from a cardiac standpoint to assess rate control. History of Present Illness Reason for Consultation: Atrial flutter Requesting Physician: Caryn Garzon MD Attending Physician: Caryn Garzon MD History of Present Illness 88-year-old woman with history of dementia, no prior cardiac history, admitted o n 10/25/2023 with increasing confusion, consistently sinus rhythm since then until she developed atrial flutter with rapid ventricular response overnight. Although she is clearly confused, she is able to carry on a simple conversation. She denies any chest pain, dyspnea, or subjective palpitations. She had no somatic complaints at the time of my evaluation this morning. Telemetry shows sinus rhythm until early this morning when rate abruptly increased from 70 bpm range to 130 bpm range concurrent with rhythm change from sinus to atrial flutter. Current rhythm is atrial flutter with rate 100 bpm. Allergies Allergy/AdvReac Type Severity Reaction Status Date / Time Penicillins Allergy Intermediate RASH Verified 12/15/22 15:21 adhesive Allergy Unknown RASH AND Verified 12/15/22 15:21 "SKIN DISINTEGRATES" clarithromycin [From Biaxin] Allergy Verified 12/15/22 15:21 Sulfa (Sulfonamide AdvReac Mild "make pt Verified 12/15/22 15:21 Antibiotics) sick" alendronate sodium AdvReac Verified 12/15/22 15:21 [From Fosamax] donepezil AdvReac nausea, Verified 12/15/22 15:21 shakiness, headaches Home Medications Medication Instructions Recorded Confirmed Type naproxen 500 mg tablet 500 mg PO Q12H PRN pain #14 tabs 08/07/23 10/25/23 Rx Patient History Medical History (Updated 11/05/23 @ 12:13 by Satish Aponte MD) Osteoporosis Depression Hyperlipidemia Weight loss External hemorrhoids Actinic keratosis Surgical History History of reduction of open fracture right distal radius History of carpal tunnel surgery right 02/27/2008 History of dilation and curettage History of colonoscopy History of cataract 2015 History of back surgery lumbar disc 1987 Family History Father Epilepsy Recurrent seizures Mother Hypertension Coronary heart disease Myocardial infarction Sister Alzheimer disease Depression Grandmother (Paternal) Diabetes Denies family history of Ovarian cancer Prostate cancer Breast cancer Lung cancer Colorectal cancer Stroke Social History Smoking Status: Unknown if ever smoked Second Hand Exposure: No; Do You Dip or Chew Tobacco: No; Hx Alcohol Use: Yes Alcohol type: wine Alcohol Intake Frequency: 4 or More x per/Week Hx Substance Use: No Preferred Language: [place] Communication Ability: Effective Visual Impairment: Limited Hearing Ability: Normal Inspector Assembly Required: No marital status: Current Living Situation: Spouse Current Living Situation Comment: lives at home with 96 year old current occupational status: retired How many Children do You have: 0 Feels Safe at Home: Yes Childhood Exposure to Second-Hand Smoke: Yes caffeine: Yes Dental Care, Regularly: Yes Physical Activity Frequency: Does not Exercise Seatbelt Use: always Sunscreen Use: Yes Physical Exam Physical Exam: Thin elderly white female confused but pleasantly interactive and in no distress. Afebrile. BP normotensive. Pulse 110 bpm range and slightly irregular. Skin: no ecchymoses or generalized lesions. HEENT: unremarkable. Neck: JVP at the clavicle at 90 degrees, no carotid bruits. Lungs: clear bilaterally. Cardiac: Slightly irregular rhythm, normal S1-2, 2/6 apical holosystolic murmur rating to the axilla, no diastolic murmur. Abdomen: benign. Extremities: no edema, pulses intact. Neurologic: Digressive speech, answers simple questions, grossly nonfocal. Results & Data Vital Signs (Past 12 Hours) Vital Signs Temp Pulse Resp BP Pulse Ox O2 Del Method 11/05/23 07:04 100 H 18 136/89 11/05/23 03:47 98.1 F 75 14 117/75 95 Room Air Laboratory Results Troponin on admission was negative. Normal CBC. Normal electrolytes, BUN 18, creatinine 0.67. Diagnostic Findings Admission ECG showed sinus rhythm at 76 bpm and was unremarkable. Echocardiogram September 2023 showed EF 55 to 60%, mild to moderate mitral regurgitation with moderate tricuspid regurgitation. No prior study for comparison PG Care Time/CCT Total # of Minutes Spent Total Time Spent with Patient: Total time spent is greater than 50% in coordination of care (as documented) at patient's floor/unit and/or counseling patient: Coding Level of Care Code 26808 IN/OBS CONSULT LVL 4,60M Diagnoses New onset atrial flutter I48.92 Mild dementia F03.90
[2023-11-05 13:09] LABS: BUN Creatinine Ratio 20.3 (10-20); Calcium 9.3 mg/dl (8.6-10.3); Creatinine Clr Calc Pharmacy 40.9 ml/min; Est GFR (African American) 91.4 ml/min; Est GFR (Non-African American) 78.8 ml/min; Magnesium 2.1 mg/dl (1.7-2.4); Potassium 4.2 mmol/L (3.5-5.1)
--- NOTE | 2023-11-05 16:13 | Hospitalist Progress Note ---
Date of Service November 05, 2023 Assessment & Plan (1) New onset atrial flutter: Plan: Onset AM of 11/04 she refused EKG but on telemetry I see atrial fibrillation, some sinus tachycardia, and mostly aflutter this morning rate often 150 Has had several brief episodes of PAT earlier this admission TTE reviewed, TSH recently normal -later in day obtained BMP, mag, phos which were unremarkable -consulted Dr. Aponte - discussed with him -started apixaban 2.5 mg bid (low dose because of age>80, weight), and metoprolol succinate 25 mg. Discussed these medication additions with her POA Elsa -rate improved later in day -try again to obtain EKG (2) Stroke: Plan: small R sided frontal lobe CVA - subacute - on MRI brain. mild memory issues for a couple of years but not severe enough to interfere with driving and performing ADLs. however, starting in Jun 2023, her functional status dropped off severely, speech became more challenging to understand, falling asleep in her car, etc. 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 her receptive speech, however, has remained relatively intact. seeing that the MRI showed this small stroke I question if she has been having small vascular events over the last few months leading to her rapid decline. echo w/o source of thrombus. CTA head/neck with some atherosclerosis but no significant stenosis. Atrial fibrillation and flutter documented 11/04 cont asa 81mg aspirin for secondary prevention. cont lipitor 40mg daily -- LDL noted (106). -apixaban and metoprolol as above frontal lobe infarct may be significantly affecting her mood lability post-discharge recommend 30-day event monitor - made referral (3) Cognitive impairment: Plan: see #1 above. 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 Decreased supplementation to 100 mg daily replaced low B12. will treat for possible depression causing "pseudo" dementia with re-initiation of SSRI (had been on celexa in the recent past but was stopped). started zoloft 12.5mg HS on 10/30/23. Low mood/sadness noted intermittently -evaluate for dose increase in 2 weeks (roughly 11/13) - continue at bedtime risperidone, added 0.25 mg a.m. dose to help with anxiety and mood lability (4) Failure to thrive in adult: Plan: cont MVI cont B12 supplementation cont B1 supplementation (5) Dementia with agitation: Plan: see above. defer on cholinesterase inhibitor at this time. (6) Mild malnutrition: Plan: BMI 19, with recent weight loss of about 2-3 kg over the last few months. See above re supplementation (7) B12 deficiency: Plan: Level <150 completed parenteral replacement - 1000mcg daily IM x 5 days, continue 1000mcg PO daily Plan DVT proph - heparin 5000 BID. Constipation - miralax, senna daily. updated pt's POA - Elsa ([phone]) - by phone 10/31/23, 11/04. updated pt's by phone 10/31/23, in room 11/01. dispo - discussed with care coordination - may need to evaluate for PCH still requiring 1:1 supervision Admission and Anticipated Discharge Date Admission Date: October 25, 2023 Subjective This morning noted to be tachycardic and in afib/flutter Seen early AM, refused lab draw and EKG Denied any chest pain, shortness of breath, nausea, lightheadedness Physical Exam 2 Physical Exam: PHYSICAL EXAMINATION Last 24h vital signs reviewed, see documentation in flowsheet General: comfortable appearing, sitting on bed eating breakfast again - pancakes HEENT: Normocephalic, atraumatic, pupils round and equal, sclerae anicteric, no conjunctival injection, moist mucus membranes Lungs: Normal respiratory effort. Clear to auscultation bilaterally. No RRW Heart: regular tachycardic, no murmurs. No JVD Abdomen: Soft, nontender, nondistended. Bowel sounds present. Extremities: Warm, dry, well-perfused. No extremity edema. Neuro: Alert and oriented x self, forgetful and confused, speech fluent, face symmetric, moves 4 extremities well - unchanged Psych: anxious affect and mood Results & Data Results & Data Vital Signs (Past 12 Hours) Vital Signs Temp Pulse Pulse Resp BP Pulse Ox O2 Del Method 11/05/23 15:13 83 11/05/23 12:13 78 11/05/23 12:13 36.5 C 81 17 136/91 97 Room Air 11/05/23 07:04 100 H 18 136/89 Laboratory Results 10/25/23 15:18 11/05/23 12:34 PG Care Time/CCT Total # of Minutes Spent Total Time Spent with Patient: I personally spent: 50 minutes today on clinical care activities including: reviewing chart notes and vital signs, reviewing telemetry reviewing labs discussion with associate art director examining the patient counseling the patient's POA writing orders documentation Coding Level of Care Code 11284 SUB INP/OBS CARE 3/50MIN Diagnoses New onset atrial flutter I48.92 Stroke I63.9 Cognitive impairment R41.89 Failure to thrive in adult R62.7 Dementia with agitation F03.911 Mild malnutrition E44.1 B12 deficiency E53.8
[2023-11-05] MEDS: APIXABAN 2.5 MG TAB PO SCH (20:27)
--- NOTE | 2023-11-06 12:25 | Cardiology Progress Note ---
Date of Service November 06, 2023 Assessment & Plan (1) New onset atrial flutter: (2) Mild dementia: Plan 88-year-old woman with no significant cardiac history, recent echo with normal EF and mild to moderate valvular disease (MR/TR), noted to develop atrial flutter after a prolonged period of sinus rhythm during her current hospitalization. Rhythm now predominantly sinus with occasional brief breakthrough atrial fibrillation. Electrolytes yesterday were favorable, no obvious precipitating factor for her atrial dysrhythmia. Had considered recommending increase in metoprolol to 25 mg twice daily, but most recent blood pressures are borderline low. Would continue her current dose of metoprolol succinate 25 mg daily, if she has more frequent atrial fibrillation breakthrough and blood pressure allows, could increase dosing if needed. If she has recurrent A-fib with low BP, would need to consider antiarrhythmic therapy. However, given favorable initial response to low-dose beta-pascale, will avoid antiarrhythmic (amiodarone). Also, if she does have a sustained episode of tachycardia, please obtain twelve-lead ECG (dysrhythmia noted only on telemetry so far and not formally documented on twelve-lead). Will sign off from a cardiology standpoint. If she has further sustained recurrence of atrial dysrhythmia or other cardiac issues, please contact Dr. Pepe, he will be covering the cardiology service this week. Admission and Anticipated Discharge Date Admission Date: October 25, 2023 Subjective Doing well, rhythm converted to sinus yesterday afternoon, occasional brief breakthrough atrial fibrillation/RVR, none longer than a few minutes. Patient remains asymptomatic. Pleasantly interactive, no complaints. Telemetry showed sinus rhythm in the 70 bpm range with brief episodes of A-fib as noted Physical Exam Physical Exam: No distress. BP low normal. Pulse 64 bpm and regular. Skin: no ecchymoses or generalized lesions. HEENT: unremarkable. Neck: JVP at the clavicle at 90 degrees, no carotid bruits. Lungs: clear bilaterally. Cardiac: Slightly irregular rhythm, normal S1-2, 2/6 apical holosystolic murmur rating to the axilla, no diastolic murmur. Abdomen: benign. Extremities: no edema, pulses intact. Neurologic: Digressive speech, answers simple questions, grossly nonfocal. Results & Data Vital Signs (Past 12 Hours) Vital Signs Temp Pulse Pulse Resp BP Pulse Ox O2 Del Method 03/10/24 07:54 64 11/06/23 04:00 98.1 F 68 16 99/63 L 97 Room Air Laboratory Results Labs from yesterday showed normal potassium of 4.2 and a magnesium of 2.1. PG Care Time/CCT Total # of Minutes Spent Total Time Spent with Patient: Total time spent is greater than 50% in coordination of care (as documented) at patient's floor/unit and/or counseling patient: Coding Level of Care Code 27553 SUB INP/OBS CARE 3/50MIN Diagnoses New onset atrial flutter I48.92 Mild dementia F03.90
--- NOTE | 2023-11-06 12:42 | Hospitalist Progress Note ---
Date of Service November 06, 2023 Assessment & Plan (1) New onset atrial flutter: Plan: Onset AM of 11/04 she refused EKG but on telemetry atrial fibrillation, some sinus tachycardia, and mostly aflutter Converted to NSR in afternoon, reviewed tele - mostly NSR since yesterday with several brief bursts of aflutter rate around 140 TTE reviewed, TSH recently normal -later in day obtained BMP, mag, phos which were unremarkable -consulted Dr. Aponte -started apixaban 2.5 mg bid (low dose because of age>80, weight), and metoprolol succinate 25 mg. Discussed these medication additions with her POA Elsa 11/04 and 11/05, risks:benefits of anticoagulation -try again to obtain EKG if she is back in aflutter for documentation (2) Stroke: Plan: small R sided frontal lobe CVA - subacute - on MRI brain. mild memory issues for a couple of years but not severe enough to interfere with driving and performing ADLs. however, starting in Jun 2023, her functional status dropped off severely, spee ch became more challenging to understand, falling asleep in her car, etc. 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 her receptive speech, however, has remained relatively intact. seeing that the MRI showed this small stroke I question if she has been having small vascular events over the last few months leading to her rapid decline. echo w/o source of thrombus. CTA head/neck with some atherosclerosis but no significant stenosis. Atrial fibrillation and flutter documented 11/04 cont asa 81mg aspirin for secondary prevention. cont lipitor 40mg daily -- LDL noted (106). -apixaban and metoprolol as above frontal lobe infarct may be significantly affecting her mood lability (3) Cognitive impairment: Plan: see #1 above. reviewed note by Dr. 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 Decreased supplementation to 100 mg daily replaced low B12. will treat for possible depression causing "pseudo" dementia with re-initiation of SSRI (had been on celexa in the recent past but was stopped). started zoloft 12.5mg HS on 10/30/23. Low mood/sadness noted intermittently -evaluate for dose increase in 2 weeks (roughly 11/13) -continue risperidone 0.25 in AM and 0.5mg at bedtime - this seems to have helped with her severe anxiety and mood lability. ideally should be tapered off in future if she tolerates (4) Failure to thrive in adult: Plan: cont MVI cont B12 supplementation cont B1 supplementation (5) Dementia with agitation: Plan: see above. intolerant of cholinesterase inhibitor in past. Risks of side effects from namenda likely outweigh benefits at this time (6) Mild malnutrition: Plan: BMI 19, with recent weight loss of about 2-3 kg over the last few months. See above re supplementation (7) B12 deficiency: Plan: Level <150 completed parenteral replacement - 1000mcg daily IM x 5 days, continue 1000mcg PO daily Plan DVT proph - heparin 5000 BID. Constipation - miralax, senna daily. updated pt's POA - Elsa ([phone]) - by phone 10/31/23, 11/04. updated pt's by phone 10/31/23, in room 11/01, 11/05. I discussed code status with Mr. Wild 11/05 and he states that preference is to allow natural / DNR/DNI dispo - discussed with care coordination - evaluate for PCH still requiring 1:1 supervision Admission and Anticipated Discharge Date Admission Date: October 25, 2023 Subjective Seen in AM and again midday when Mr. Wild was visiting Remains confused. No chest pain or dyspnea. Converted to NSR yesterday afternoon. He reports her speech output and crying spells both significantly improved since admission (though they persist) Physical Exam Physical Exam: PHYSICAL EXAMINATION Last 24h vital signs reviewed, see documentation in flowsheet General: comfortable appearing, sitting on edge of bed HEENT: Normocephalic, atraumatic, pupils round and equal, sclerae anicteric, no conjunctival injection, moist mucus membranes Lungs: Normal respiratory effort. Clear to auscultation bilaterally. No RRW Heart: regular rate and rhythm, no murmurs. No JVD Abdomen: Soft, nontender, nondistended. Bowel sounds present. Extremities: Warm, dry, well-perfused. No extremity edema. Neuro: Alert and oriented x self, forgetful and confused, speech fluent, face symmetric, moves 4 extremities well - unchanged Psych: labile affect, crying spells but able to be distracted/redirected Results & Data Results & Data Vital Signs (Past 12 Hours) Vital Signs Temp Pulse Pulse Resp BP Pulse Ox O2 Del Method 11/06/23 07:54 64 11/06/23 04:00 36.7 C 68 16 99/63 L 97 Room Air PG Care Time/CCT Total # of Minutes Spent Total Time Spent with Patient: Total time spent is greater than 50% in coordination of care (as documented) at patient's floor/unit and/or counseling patient: Coding Level of Care Code 53649 SUB INP/OBS CARE 3/50MIN Diagnoses New onset atrial flutter I48.92 Stroke I63.9 Cognitive impairment R41.89 Failure to thrive in adult R62.7 Dementia with agitation F03.911 Mild malnutrition E44.1 B12 deficiency E53.8
--- NOTE | 2023-11-07 16:17 | Hospitalist Progress Note ---
Date of Service November 07, 2023 Assessment & Plan (1) New onset atrial flutter: Plan: Onset AM of 11/04 she refused EKG but on telemetry atrial fibrillation, some sinus tachycardia, and mostly aflutter. Refused EKG at that time. Converted to NSR in afternoon 11/05, several brief bursts of aflutter rate around 140 night of 11/05, thereafter NSR TTE reviewed, TSH recently normal -BMP, mag, phos were unremarkable -consulted Dr. Aponte -started apixaban 2.5 mg bid (low dose because of age>80, weight), and metoprolol succinate 25 mg. Discussed these medication additions with her POA Elsa 11/04 and 11/05, risks:benefits of anticoagulation -try again to obtain EKG if she is back in aflutter for documentation (2) Stroke: Plan: small R sided frontal lobe CVA - subacute - on MRI brain. mild memory issues for a couple of years but not severe enough to interfere with driving and performing ADLs. however, starting in Jun 2023, her functional status dropped off severely, speech became more challenging to understand, falling asleep in her car, etc. 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 her receptive speech, however, has remained relatively intact. seeing that the MRI showed this small stroke I question if she has been having small vascular events over the last few months leading to her rapid decline. echo w/o source of thrombus. CTA head/neck with some atherosclerosis but no significant stenosis. Atrial fibrillation and flutter documented 11/04 cont asa 81mg aspirin for secondary prevention. cont lipitor 40mg daily -- LDL noted (106). -apixaban and metoprolol as above frontal lobe infarct may be significantly affecting her mood lability (3) Cognitive impairment: Plan: see #1 above. reviewed note by Dr. 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 Decreased supplementation to 100 mg daily replaced low B12. will treat for possible depression causing "pseudo" dementia with re-initiation of SSRI (had been on celexa in the recent past but was stopped). started zoloft 12.5mg HS on 10/30/23. Low mood/sadness noted intermittently -evaluate for dose increase in 2 weeks (roughly 11/13) -continue risperidone 0.25 in AM and 0.5mg at bedtime - this seems to have helped with her severe anxiety and mood lability. ideally should be tapered off in future if she tolerates (4) Failure to thrive in adult: Plan: cont MVI cont B12 supplementation cont B1 supplementation (5) Dementia with agitation: Plan: see above. intolerant of cholinesterase inhibitor in past. Risks of side effects from namenda likely outweigh benefits at this time (6) Mild malnutrition: Plan: BMI 19, with recent weight loss of about 2-3 kg over the last few months. See above re supplementation (7) B12 deficiency: Plan: Level <150 completed parenteral replacement - 1000mcg daily IM x 5 days, continue 1000mcg PO daily Plan DVT proph - heparin 5000 BID. Constipation - miralax, senna daily. updated pt's POA - Elsa ([phone]) - by phone 10/31/23, 11/04. updated pt's by phone 10/31/23, in room 11/01, 11/05. I discussed code status with Mr. Wild 11/05 and he states that preference is to allow natural / DNR/DNI dispo - discussed with care coordination - evaluate for PCH still requiring 1:1 supervision Admission and Anticipated Discharge Date Admission Date: October 25, 2023 Subjective Crying this morning Remains confused No afib/flutter overnight Physical Exam Physical Exam: PHYSICAL EXAMINATION Last 24h vital signs reviewed, see documentation in flowsheet General: up walking in room and sad/distressed HEENT: moist mucus membranes Lungs: Normal respiratory effort. Clear to auscultation bilaterally. No RRW Heart: regular rate and rhythm, no murmurs. Abdomen: flat, nondistended Extremities: Warm, dry, well-perfused. No extremity edema. Neuro: Alert and oriented x self, forgetful and confused, speech fluent, face symmetric, walks well Psych: labile affect, sad mood, crying currently Results & Data Results & Data Vital Signs (Past 12 Hours) Vital Signs Temp Pulse Pulse Resp BP Pulse Ox O2 Del Method 11/07/23 15:40 79 11/07/23 15:31 36.5 C 89 17 118/70 100 Room Air 11/07/23 12:02 66 11/07/23 11:16 36.4 C L 77 17 112/79 100 Room Air 11/07/23 07:11 36.3 C L 65 18 106/67 95 Room Air PG Care Time/CCT Total # of Minutes Spent Total Time Spent with Patient: Total time spent is greater than 50% in coordination of care (as documented) at patient's floor/unit and/or counseling patient: Coding Level of Care Code 99187 SUB INP/OBS CARE 09/22MIN Diagnoses New onset atrial flutter I48.92 Stroke I63.9 Cognitive impairment R41.89 Failure to thrive in adult R62.7 Dementia with agitation F03.911 Mild malnutrition E44.1 B12 deficiency E53.8
[2023-11-07] MEDS: METOPROLOL TARTRATE 25 MG TAB PO STA (20:59)
--- NOTE | 2023-11-08 11:20 | Hospitalist Progress Note ---
Date of Service November 08, 2023 Assessment & Plan (1) Left ankle injury: Plan: x-rays without fracture likely lateral ankle sprain RICE - rest, ice, elevate while in bed TRISTIN wrap & surgical shoe would be helpful for ambulation if any worsening consider CT of ankle tylenol prn pain (2) Atrial flutter: Plan: discovered on tele earlier this admission no symptoms seen by cardiology - rate control strategy advised for now with metoprolol succ 25mg daily echo with normal LV function TSH wnl no valvular disease if episodes become frequent or she becomes symptomatic then a rhythm strategy might be best cont Eliquis 2.5mg BID cont telemetry (3) New onset a-fib: Plan: seen on telemetry yesterday cont metoprolol succ cont Eliquis 2.5mg BID for anticoagulation (4) Stroke: Plan: small R sided frontal lobe CVA - subacute - on MRI brain. I spoke with her POAnamaria Elsa by phone 10/28/23. she confirmed that Mrs Wild has had mild memory issues for a couple of years but not severe enough to interfere with driving and performing ADLs. however, starting in Jun 2023, her functional status dropped off severely, speech became more challenging to understand, falling asleep in her car, etc. 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 her receptive speech, however, has remained relatively intact. seeing that the MRI showed this small stroke I question if she has been having small vascular events over the last few months leading to her rapid decline. 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 cont Eliquis 2.5mg BID. had been on asa 81mg daily - consider discontinuation. cont lipitor 40mg daily -- LDL noted 106. echo w/o source of thrombus. CTA head/neck with some atherosclerosis but no significant stenosis. (5) Cognitive impairment: Plan: see above. suspect vascular in origin. replace low B12. 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 started zoloft 12.5mg HS on 10/30/23. consider increase to 25mg in about 1-2 weeks since she is doing well on it thus far. Na level on most recent BMP wnl. (6) Failure to thrive in adult: Plan: cont MVI cont B12 supplementation cont B1 supplementation (7) Dementia with agitation: Plan: see above. cont to replace low B12. cont risperdal 0.5mg HS. cont risperdal 0.25mg AM. cont melatonin. cont zoloft 12.5mg daily for possible depression. cont to defer on cholinesterase inhibitor at this time. (8) Mild malnutrition: Plan: BMI 19, with recent weight loss of about 2-3 kg over the last few months. her weight has decreased while hospitalized. Cont B12, B1, and MVI. Cont Boost supplementation. (9) B12 deficiency: Plan: Level <150 Cont B12 supplementation 1000mcg PO daily Plan DVT proph - Eliquis 2.5mg BID Constipation - miralax daily, senna daily will update pt's YOAN Hunter ([phone]) - tomorrow dispo - needs memory unit at [facility] Admission and Anticipated Discharge Date Admission Date: October 25, 2023 Subjective 2 minute episode of a.fib yesterday pm no symptoms this am the patient was ambulating in the room with the assistance of a medical malpractice paralegal unfortunately she stumbled while walking - did not fall - but injured her left ankle there was immediate swelling of the lateral ankle staff placed ice on the area and put her back in bed no loss of consciousness no syncope no other injuries eating fair per nursing flowsheets +stools yesterday Review of Systems Review of Systems: Unobtainable due to cognitive status Physical Exam Physical Exam: gen - NAD, laying in bed, speech is more fluent in comparison to my last visit with her about 1 week ago, pleasant mouth - MMM neck - no JVD heart - RRR, s1 s2, no murmur lungs - CTA b/l abd - soft NT ND BS+ ext - no edema, pulses 2+ b/l musculo - left knee - no evidence of trauma, full passive ROM; left foot - no trauma/injury/tenderness/swelling; left ankle - moderate swelling lateral ankle over the distal fibula, tender over anterior talofibular ligament; mild ecchymoses present over this region; nontender over the distal tibia; mild pain with eversion of ankle; no pain with inversion of ankle Results & Data Results & Data Vital Signs (Past 12 Hours) Vital Signs Temp Pulse Pulse Resp BP Pulse Ox O2 Del Method 11/08/23 10:00 72 11/08/23 07:20 36.4 C L 66 19 108/64 98 Room Air 11/08/23 03:23 36.8 C 72 18 126/81 99 Room Air Diagnostic Findings Ankle X-Ray 11/08/23 11:19 XR ankle LT min 3V routine CLINICAL HISTORY: left ankle injury, distal fib swelling/pain COMPARISON: Left foot radiographs April 14, 2021. FINDINGS: Alignment of the left ankle is anatomic. There is no acute fracture. Lateral ankle soft tissue swelling is present. 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 Plantar calcaneal spur is present. IMPRESSION: 1. No acute fracture or dislocation within the left ankle. 2. Lateral ankle soft tissue swelling. ACT 112: Negative or not required by law. Electronically signed by: Gustabo Damon M.D. 11/08/2023 12:58 PM PG Care Time/CCT Total # of Minutes Spent Total Time Spent with Patient: Total time spent is greater than 50% in coordination of care (as documented) at patient's floor/unit and/or counseling patient: Coding Level of Care Code 17381 SUB INP/OBS CARE 2/35MIN Diagnoses Left ankle injury S99.912A Atrial flutter I48.92 New onset a-fib I48.91 Stroke I63.9 Cognitive impairment R41.89 Failure to thrive in adult R62.7 Dementia with agitation F03.911 Mild malnutrition E44.1 B12 deficiency E53.8
--- NOTE | 2023-11-08 13:00 | XRay Report ---
XR ankle LT min 3V routine CLINICAL HISTORY: left ankle injury, distal fib swelling/pain COMPARISON: Left foot radiographs April 14, 2021. FINDINGS: Alignment of the left ankle is anatomic. There is no acute fracture. Lateral ankle soft ti ssue swelling is present. 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 Plantar calcaneal spur is pr esent. IMPRESSION: 1. No acute fracture or dislocation within the left ankle. 2. Lateral ankle soft tissue swelling. ACT 112: Negative or not required by law. Electronically signed by: Gustabo Damon M.D. 11/08/2023 12:58 PM
--- NOTE | 2023-11-09 20:38 | Hospitalist Progress Note ---
Date of Service November 09, 2023 Assessment & Plan (1) Left ankle injury: Plan: x-rays without fracture likely lateral ankle sprain RICE - rest, ice, elevate while in bed TRISTIN wrap applied would benefit from surgical shoe or boot as she is not going to comply with sta gerardo off her LLE or at least limiting activity if any worsening consider CT of ankle tylenol prn pain (2) Atrial flutter: Plan: discovered on tele earlier this admission no symptoms seen by cardiology - rate control strategy advised for now with metoprolol succ 25mg daily echo with normal LV function TSH wnl no valvular disease if episodes become frequent or she becomes symptomatic then a rhythm strategy might be best cont Eliquis 2.5mg BID cont telemetry (3) New onset a-fib: Plan: seen on telemetry earlier this week cont metoprolol succ cont Eliquis 2.5mg BID for anticoagulation (4) Stroke: Plan: small R sided frontal lobe CVA - subacute - on MRI brain. I spoke with her POAnamaria Elsa by phone 10/28/23. she confirmed that Mrs Wild has had mild memory issues for a couple of years but not severe enough to interfere with driving and performing ADLs. however, starting in Jun 2023, her functional status dropped off severely, speech became more challenging to understand, falling asleep in her car, etc. 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 her receptive speech, however, has remained relatively intact. seeing that the MRI showed this small stroke I question if she has been having small vascular events over the last few months leading to her rapid decline. 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 cont Eliquis 2.5mg BID. had been on asa 81mg daily - consider discontinuation. cont lipitor 40mg daily -- LDL noted 106. echo w/o source of thrombus. CTA head/neck with some atherosclerosis but no significant stenosis. (5) Cognitive impairment: Plan: see above. suspect vascular in origin. replace low B12. 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 started zoloft 12.5mg HS on 10/30/23. consider increase to 25mg in about 1 week since she is doing well on it thus far. Na level on most recent BMP wnl. (6) Failure to thrive in adult: Plan: cont MVI cont B12 supplementation cont B1 supplementation (7) Dementia with agitation: Plan: see above. cont to replace low B12. cont risperdal 0.5mg HS. cont risperdal 0.25mg AM. cont melatonin. cont zoloft 12.5mg daily for possible depression. cont to defer on cholinesterase inhibitor at this time. (8) Mild malnutrition: Plan: BMI 19, with recent weight loss of about 2-3 kg over the last few months. her weight has decreased while hospitalized. Cont B12, B1, and MVI. Cont Boost supplementation. Consider changing zoloft to remeron. (9) B12 deficiency: Plan: Level <150 Cont B12 supplementation 1000mcg PO daily Plan DVT proph - Eliquis 2.5mg BID Constipation - miralax daily, senna daily will update pt's POA - Elsa ([phone]) - next 1-2 days dispo - needs memory unit at [facility] Admission and Anticipated Discharge Date Admission Date: October 25, 2023 Subjective NSR on tele overnight resting in bed during the visit staff report she is walking frequently on her LLE despite the injury yesterday staff giving ice packs to the L ankle staff report frequent crying spells and emotional lability eating ok Review of Systems Review of Systems: Unobtainable due to cognitive status Physical Exam Physical Exam: gen - NAD, laying in bed, speech fluent, crying at times mouth - MMM neck - no JVD heart - RRR, s1 s2, no murmur lungs - CTA b/l abd - soft NT ND BS+ ext - no edema, pulses 2+ b/l musculo - left ankle - moderate swelling lateral ankle over the distal fibula and inferior to such; ecchymoses present, tender over anterior talofibular ligament; nontender over the distal tibia; mild pain with eversion of ankle -- exam unchanged from yesterday I placed the ankle in an TRISTIN wrap today Results & Data Results & Data Vital Signs (Past 12 Hours) Vital Signs Temp Pulse Resp BP Pulse Ox O2 Del Method 11/09/23 19:25 36.6 C 80 16 124/62 99 Room Air 11/09/23 16:28 36.5 C 77 19 124/70 99 Room Air 11/09/23 10:26 36.2 C L 80 19 122/70 93 Room Air PG Care Time/CCT Total # of Minutes Spent Total Time Spent with Patient: Total time spent is greater than 50% in coordination of care (as documented) at patient's floor/unit and/or counseling patient: Coding Level of Care Code 73814 SUB INP/OBS CARE 2/35MIN Diagnoses Left ankle injury S99.912A Atrial flutter I48.92 New onset a-fib I48.91 Stroke I63.9 Cognitive impairment R41.89 Failure to thrive in adult R62.7 Dementia with agitation F03.911 Mild malnutrition E44.1 B12 deficiency E53.8
[2023-11-09] MEDS: HYDROmorphone INJ 0.5 MG/0.5 ML SYR IV STA (22:09)
[2023-11-10] MEDS: HYDROmorphone INJ 1 MG/ML SYRINGE IV STA (01:03)
[2023-11-10] MEDS: HALOPERIDOL LACTATE 5 MG/ML 1 ML VIAL IV STA (05:03)
[2023-11-10] MEDS: HALOPERIDOL LACTATE 5 MG/ML 1 ML VIAL ONE (05:03)
--- NOTE | 2023-11-10 09:25 | CT Scan Report ---
CT ankle LT wo con HISTORY: 88 years-old Female distal fib injury Acute pain of the left ankle without reported trauma. COMPARISON: Radiographs 11/08/2023. TECHNIQUE: Multiple axial CT images of the left ankle were obtained without IV contrast. Coronal and sagittal reformatted images were obtained and submitted for review. A dose lowering technique was use d consistent with the principals of STEPHEN. FINDINGS: Demineralized appearance of the bones. Subtle acute nondisplaced fracture involves the distal most as pect of the distal fibula. No additional acute fracture or dislocation is identified. Chondrocalcinos is of the ankle. Large plantar calcaneal enthesophyte. Divc-xq-jdisjkmv osteoarthritis of the ankle a nd imaged foot. No osteochondral defect. No acute osseous erosion. Arterial calcifications. Tendons and ligaments are not well evaluated by CT technique. Icjr-nt-qfoeoj te diffuse subcutaneous edema, most pronounced laterally. IMPRESSION: 1. Subtle acute nondisplaced lateral malleolar fracture. 2. No acute displaced fracture or dislocation. 3. Bxqf-vq-jrooktul osteoarthritis with chondrocalcinosis. ACT 112: Negative or not required by law. The above report was generated using voice recognition software. It may contain grammatical, syntax o r spelling errors. Dictated: 11/10/2023 7:48 AM Transcribed: 11/10/2023 8:37 AM [facility] [id number] [email or web address] Electronically signed by: Bhupendra Larsen M.D. 11/10/2023 9:24 AM
[2023-11-10] MEDS: ACETAMINOPHEN 500 MG TAB PO SCH (11:11)
--- NOTE | 2023-11-10 11:35 | Orthopedic Consultation ---
Date of Service November 10, 2023 Assessment & Plan (1) Closed fracture of lateral malleolus of left ankle: Patient presentation and plan was discussed with Dr. Toure. At this point, we may treat this injury nonoperatively. She may be placed in an ASO ankle brace to the left ankle and may be weightbearing as tolerated. I will place an order for an ASO ankle brace and/or a consultation to orthotics. May continue to do the rest, ice, elevation procedures. Medical management per primary. She may follow-up with orthopedics in 2 weeks for follow-up fracture care. Please reach out by [place] text or to [facility] orthopedics if this patient's situation is to change History of Present Illness Reason for Consultation: . Left ankle fracture Requesting Physician: . Attending Physician: Db Handy MD . Marisol is a pleasantly demented 88-year-old female who does not provide much history during my visit with her this morning. She is resting comfortably in bed in no apparent distress. History is from the intake forms as well as the nurse aide that was in her room today. On November 07, she was ambulating in her room whenever she twisted her ankle. She had immediate onset of left ankle pain and was unable to put much weight on it without discomfort. Original x-rays did not show any sign of fracture. May use a Henry wrap around the ankle and with rest, ice, elevation while in bed. She continued with discomfort to the left ankle so a CT scan was done which revealed a subtle acute fracture to the lateral malleolus that is nondisplaced. Orthopedics was then consulted. No changes today according to the nurses aide. Still describes discomfort to the left ankle. Allergies Allergy/AdvReac Type Severity Reaction Status Date / Time Penicillins Allergy Intermediate RASH Verified 12/15/22 15:21 adhesive Allergy Unknown RASH AND Verified 12/15/22 15:21 "SKIN DISINTEGRATES" clarithromycin [From Biaxin] Allergy Verified 12/15/22 15:21 Sulfa (Sulfonamide AdvReac Mild "make pt Verified 12/15/22 15:21 Antibiotics) sick" alendronate sodium AdvReac Verified 12/15/22 15:21 [From Fosamax] donepezil AdvReac nausea, Verified 12/15/22 15:21 shakiness, headaches Home Medications Medication Instructions Recorded Confirmed Type naproxen 500 mg tablet 500 mg PO Q12H PRN pain #14 tabs 08/07/23 10/25/23 Rx Past Med/Surg History Medical History (Updated 11/10/23 @ 11:41 by Bhupendra Riley PA-C) Atrial flutter Osteoporosis Depression Hyperlipidemia Weight loss External hemorrhoids Actinic keratosis Surgical History History of reduction of open fracture right distal radius History of carpal tunnel surgery right 02/27/2008 History of dilation and curettage History of colonoscopy History of cataract 2014 History of back surgery lumbar disc 1987 Family History Father Epilepsy Recurrent seizures Mother Hypertension Coronary heart disease Myocardial infarction Sister Alzheimer disease Depression Grandmother (Paternal) Diabetes Denies family history of Ovarian cancer Prostate cancer Breast cancer Lung cancer Colorectal cancer Stroke Social History Smoking Status: Unknown if ever smoked Second Hand Exposure: No; Do You Dip or Chew Tobacco: No; Hx Alcohol Use: Yes Alcohol type: wine Alcohol Intake Frequency: 4 or More x per/Week Hx Substance Use: No Preferred Language: Afghan Communication Ability: Effective Visual Impairment: Limited Hearing Ability: Normal Audiovisual Librarian Required: No marital status: Current Living Situation: Spouse Current Living Situation Comment: lives at home with 96 year old current occupational status: retired How many Children do You have: 0 Feels Safe at Home: Yes Childhood Exposure to Second-Hand Smoke: Yes caffeine: Yes Dental Care, Regularly: Yes Physical Activity Frequency: Does not Exercise Seatbelt Use: always Sunscreen Use: Yes Review of Systems All systems reviewed & are unremarkable except as noted in HPI & below. Physical Exam . gen - NAD, laying in bed, speech fluent, crying at times mouth - MMM neck - no JVD heart - RRR, s1 s2, no murmur lungs - CTA b/l abd - soft NT ND BS+ ext - no edema, pulses 2+ b/l musculo - left ankle - moderate swelling lateral ankle over the distal fibula and inferior to such; ecchymoses present, tender over anterior talofibular ligament; nontender over the distal tibia; mild pain with eversion of ankle -- exam unchanged from yesterday I placed the ankle in an HENRY wrap today Musculoskeletal On physical examination of the left ankle, there is mild edema with ecchymosis most predominantly over the lateral malleolus. No erythema, warmth to touch, or other obvious deformities. Tenderness to palpation adjacent to the distal lateral malleolus. Limited range of motion and strength due to subjective discomfort. +2 DP and PT pulses. Less than 2-second capillary refill. Normal sensation. Neurovascular intact. Results & Data Results & Data Laboratory Results . Diagnostic Findings Ankle X-Ray 11/08/23 11:19 XR ankle LT min 3V routine CLINICAL HISTORY: left ankle injury, distal fib swelling/pain COMPARISON: Left foot radiographs April 14, 2021. FINDINGS: Alignment of the left ankle is anatomic. There is no acute fracture. Lateral ankle soft tissue swelling is present. 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 Plantar calcaneal spur is present. IMPRESSION: 1. No acute fracture or dislocation within the left ankle. 2. Lateral ankle soft tissue swelling. ACT 112: Negative or not required by law. Electronically signed by: Gustabo Damon M.D. 11/08/2023 12:[address] 11/10/23 01:02 CT ankle LT wo con HISTORY: 88 years-old Female distal fib injury Acute pain of the left ankle without reported trauma. COMPARISON: Radiographs 11/08/2023. TECHNIQUE: Multiple axial CT images of the left ankle were obtained without IV contrast. Coronal and sagittal reformatted images were obtained and submitted for review. A dose lowering technique was used consistent with the principals of ALARA. FINDINGS: Demineralized appearance of the bones. Subtle acute nondisplaced fracture involves the distal most aspect of the distal fibula. No additional acute fracture or dislocation is identified. Chondrocalcinosis of the ankle. Large plantar calcaneal enthesophyte. Ftka-uv-iqootjur osteoarthritis of the ankle and imaged foot. No osteochondral defect. No acute osseous erosion. Arterial calcifications. Tendons and ligaments are not well evaluated by CT technique. Kalk-zm-ywssegdp diffuse subcutaneous edema, most pronounced lat erally. IMPRESSION: 1. Subtle acute nondisplaced lateral malleolar fracture. 2. No acute displaced fracture or dislocation. 3. Tecs-ac-xmvwidot osteoarthritis with chondrocalcinosis. ACT 112: Negative or not required by law. The above report was generated using voice recognition software. It may contain grammatical, syntax or spelling errors. Dictated: 11/10/2023 7:48 AM Transcribed: 11/10/2023 8:37 AM [facility] [id number] [email or web address] Electronically signed by: Bhupendra Larsen M.D. 11/10/2023 9:24 AM PG Care Time/CCT Total # of Minutes Spent Total Time Spent with Patient: Total time spent is greater than 50% in coordination of care (as documented) at patient's floor/unit and/or counseling patient: Coding Level of Care Code 42132 IN/OBS CONSULT LVL 3,45M Diagnoses Closed nondisplaced fracture of lateral malleolus of left fibula, initial encounter S82.65XA Encounter type: initial encounter Fracture alignment: nondisplaced Additional Codes Fx Ankle - Distal fibula/lateral malleolus: Distal fibula/lateral malleolus ([id number]) (1) Closed fracture of lateral malleolus of left ankle Encounter type: initial encounter Fracture alignment: nondisplaced Qualified Code(s): S82.65XA - Nondisplaced fracture of lateral malleolus of left fibula, initial encounter for closed fracture
--- NOTE | 2023-11-10 20:20 | Hospitalist Progress Note ---
Date of Service November 10, 2023 Assessment & Plan (1) Closed fracture of lateral malleolus of left ankle: Plan: distal fib fracture mild, nondisplaced ortho consult placed appreciate their assistance WBAT with brace in place f/u post-d/c with ortho in 2 weeks check 25-OH vit D level am place on scheduled tylenol 1gm TID for pain control noted to have CPPD findings on CT - if refractory pain consider low-dose prednisone (not NSAID candidate due to Eliquis) (2) Left ankle injury: Plan: see #1 above (3) Atrial flutter: Plan: discovered on tele earlier this admission no symptoms seen by cardiology - rate control strategy advised for now with metoprolol succ 25mg daily echo with normal LV function TSH wnl no valvular disease if episodes become frequent or she becomes symptomatic then a rhythm strategy might be best cont Eliquis 2.5mg BID cont telemetry (4) New onset a-fib: Plan: seen on telemetry earlier this week cont metoprolol succ cont Eliquis 2.5mg BID for anticoagulation (5) Stroke: Plan: small R sided frontal lobe CVA - subacute - on MRI brain. I spoke with her POA Elsa by phone 10/28/23. she confirmed that Mrs Wild has had mild memory issues for a couple of years but not severe enough to interfere with driving and performing ADLs. however, starting in Jun 2023, her functional status dropped off severely, speech became more challenging to understand, falling asleep in her car, etc. 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 her receptive speech, however, has remained relatively intact. seeing that the MRI showed this small stroke I question if she has been having small vascular events over the last few months leading to her rapid decline. 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 cont Eliquis 2.5mg BID. had been on asa 81mg daily - consider discontinuation. cont lipitor 40mg daily -- LDL noted 106. echo w/o source of thrombus. CTA head/neck with some atherosclerosis but no significant stenosis. (6) Cognitive impairment: Plan: see above. suspect vascular in origin. replace low B12. 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 started zoloft 12.5mg HS on 10/30/23. consider increase to 25mg in about 1 week since she is doing well on it thus far. Na level on most recent BMP wnl. (7) Failure to thrive in adult: Plan: cont MVI cont B12 supplementation cont B1 supplementation (8) Dementia with agitation: Plan: see above. cont to replace low B12. cont risperdal but increase to 1mg HS. HOLD risperdal 0.25mg AM. cont melatonin. cont zoloft 12.5mg daily for possible depression. cont to defer on cholinesterase inhibitor at this time. (9) Mild malnutrition: Plan: BMI 19, with recent weight loss of about 2-3 kg over the last few months. her weight has decreased while hospitalized. Cont B12, B1, and MVI. Cont Boost supplementation. Consider changing zoloft to remeron. (10) B12 deficiency: Plan: Level <150 Cont B12 supplementation 1000mcg PO daily Plan DVT proph - Eliquis 2.5mg BID Constipation - miralax daily, senna daily updated pt's POA - Elsa ([phone]) - this evening re: #1, ultimate admission to [facility] Memory unit, etc dispo - memory unit at [facility] Admission and Anticipated Discharge Date Admission Date: October 25, 2023 Subjective had significant pain over night in L ankle was agitated required haldol (IV) and dilaudid for agitation/pain, respectively per the sitter ate a little better today during my visit pt was sleeping; just fell asleep prior to my arrival Physical Exam Physical Exam: gen - NAD, laying in bed sleeping soundly, comfortably lips - MMM neck - no JVD heart - RRR, s1 s2, no murmur lungs - CTA b/l abd - soft NT ND BS+ ext - no edema, pulses 2+ b/l musculo - left ankle in brace Results & Data Results & Data Vital Signs (Past 12 Hours) Vital Signs Temp Pulse Pulse Resp BP Pulse Ox O2 Del Method 11/10/23 19:01 36.9 C 75 16 101/60 99 Room Air 11/10/23 15:34 75 11/10/23 15:07 36.6 C 71 18 90/54 L 95 Room Air 11/10/23 12:39 36.4 C L 78 18 108/64 99 Room Air Diagnostic Findings Lower Extremity CT 11/10/23 01:02 CT ankle LT wo con HISTORY: 88 years-old Female distal fib injury Acute pain of the left ankle without reported trauma. COMPARISON: Radiographs 11/08/2023. TECHNIQUE: Multiple axial CT images of the left ankle were obtained without IV contrast. Coronal and sagittal reformatted images were obtained and submitted for review. A dose lowering technique was used consistent with the principals of STEPHEN. FINDINGS: Demineralized appearance of the bones. Subtle acute nondisplaced fracture involves the distal most aspect of the distal fibula. No additional acute fracture or dislocation is identified. Chondrocalcinosis of the ankle. Large plantar calcaneal enthesophyte. [id number]-[id number] osteoarthritis of the ankle and imaged foot. No osteochondral defect. No acute osseous erosion. Arterial calcifications. Tendons and ligaments are not well evaluated by CT technique. Djgx-zm-oopmskje diffuse subcutaneous edema, most pronounced laterally. IMPRESSION: 1. Subtle acute nondisplaced lateral malleolar fracture. 2. No acute displaced fracture or dislocation. 3. Gzyp-nl-rrblzrrq osteoarthritis with chondrocalcinosis. ACT 112: Negative or not required by law. The above report was generated using voice recognition software. It may contain grammatical, syntax or spelling errors. Dictated: 11/10/2023 7:48 AM Transcribed: 11/10/2023 8:37 AM [facility] [id number] [email or web address] Electronically signed by: Bhupendra Larsen M.D. 11/10/2023 9:24 AM PG Care Time/CCT Total # of Minutes Spent Total Time Spent with Patient: Total time spent is greater than 50% in coordination of care (as documented) at patient's floor/unit and/or counseling patient: Coding Level of Care Code 95024 SUB INP/OBS CARE 2/35MIN Diagnoses Closed nondisplaced fracture of lateral malleolus of left fibula, initial encounter S82.65XA Encounter type: initial encounter Fracture alignment: nondisplaced Left ankle injury S99.912A Atrial flutter I48.92 New onset a-fib I48.91 Stroke I63.9 Cognitive impairment R41.89 Failure to thrive in adult R62.7 Dementia with agitation F03.911 Mild malnutrition E44.1 B12 deficiency E53.8 (1) Closed fracture of lateral malleolus of left ankle Encounter type: initial encounter Fracture alignment: nondisplaced Qualified Code(s): S82.65XA - Nondisplaced fracture of lateral malleolus of left fibula, initial encounter for closed fracture
[2023-11-10] MEDS: risperiDONE 1 MG TABLET PO SCH (21:45)
[2023-11-11 06:37] LABS: Hematocrit (blood only) 35.9 % (37.0-47.0); Hemoglobin 11.7 g/dl (12.0-16.0); Mean Corpuscular Hemoglobin 32.1 pg (25.0-34.0); Mean Corpuscular Hgb Conc 32.6 g/dL (32.0-36.0); Mean Corpuscular Volume 98.4 fL (80.0-100.0); Mean Platelet Volume 9.3 fL (9.4-12.4); Platelet Count 358 K/uL (130-400); RDW Coefficient of Variation 12.7 % (11.5-14.5); RDW Standard Deviation 46.2 fL (36.4-46.3); Red Blood Count 3.65 M/uL (4.20-5.40); White Blood Count 7.32 K/ul (4.8-10.8)
[2023-11-11 07:11] LABS: Calcium 8.9 mg/dl (8.6-10.3); Creatinine Clr Calc Pharmacy 39.8 ml/min; Est GFR (African American) 87.9 ml/min; Est GFR (Non-African American) 75.8 ml/min; Potassium 3.8 mmol/L (3.5-5.1)
[2023-11-11] MEDS: CHOLECALCIFEROL 25 MCG (1000 UNITS) TAB PO SCH (11:07)
--- NOTE | 2023-11-11 20:48 | Hospitalist Progress Note ---
Date of Service November 11, 2023 Assessment & Plan (1) Closed fracture of lateral malleolus of left ankle: Plan: distal fib fracture mild, nondisplaced ortho consult appreciated WBAT with brace in place f/u post-d/c with ortho in 2 weeks checked 25-OH vit D level - minimally depressed at 29; supplement vit D 2000 IU daily cont scheduled tylenol 1gm TID for pain control noted to have CPPD findings on CT - if refractory pain consider low-dose prednisone (not NSAID candidate due to Eliquis) (2) Left ankle injury: Plan: see #1 above (3) Atrial flutter: Plan: discovered on tele earlier this admission no symptoms seen by cardiology - rate control strategy advised for now with metoprolol succ 25mg daily echo with normal LV function TSH wnl no valvular disease if episodes become frequent or she becomes symptomatic then a rhythm strategy might be best cont Eliquis 2.5mg BID cont telemetry (4) New onset a-fib: Plan: seen on telemetry earlier this week cont metoprolol succ cont Eliquis 2.5mg BID for anticoagulation (5) Stroke: Plan: small R sided frontal lobe CVA - subacute - on MRI brain. I spoke with her POA Elsa by phone 10/28/23. she confirmed that Mrs Wild has had mild memory issues for a couple of years but not severe enough to interfere with driving and performing ADLs. however, starting in Jun 2023, her functional status dropped off severely, speech became more challenging to understand, falling asleep in her car, etc. 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 her receptive speech, however, has remained relatively intact. seeing that the MRI showed this small stroke I question if she has been having small vascular events over the last few months leading to her rapid decline. 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 cont Eliquis 2.5mg BID. can stop aspirin. cont lipitor 40mg daily -- LDL noted 106. echo w/o source of thrombus. CTA head/neck with some atherosclerosis but no significant stenosis. (6) Cognitive impairment: Plan: see above. suspect vascular in origin. replace low B12. 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 started zoloft 12.5mg HS on 10/30/23. consider increase to 25mg in about 1 week since she is doing well on it thus far. Na level on most recent BMP wnl. (7) Failure to thrive in adult: Plan: cont MVI cont B12 supplementation cont B1 supplementation appetite overall improving (8) Dementia with agitation: Plan: see above. cont to replace low B12. cont risperdal at 1mg HS - this dose was helpful and she is tolerating such w/o increased sedation or side effects cont to HOLD risperdal AM cont melatonin. cont zoloft 12.5mg daily for possible depression. cont to defer on cholinesterase inhibitor at this time. (9) Mild malnutrition: Plan: BMI 19, with recent weight loss of about 2-3 kg over the last few months. her weight has decreased while hospitalized. Cont B12, B1, and MVI. Cont Boost supplementation. Consider changing zoloft to remeron but defer for now (10) B12 deficiency: Plan: Level <150 Cont B12 supplementation 1000mcg PO daily Plan DVT proph - Eliquis 2.5mg BID Constipation - miralax daily, senna daily updated pt's POA - Elsa ([phone]) - yesterday evening re: #1, ultimate admission to [facility] Memory unit, etc dispo - memory unit at [facility] on TUESDAY, 11/13 per case management Admission and Anticipated Discharge Date Admission Date: October 25, 2023 Subjective tele overnight - no a.fib or arrhythmia pt sitting in chair pleasantly confused but follows commands, answers questions etc some pain noted by staff members when she ambulates she does have a brace on the L ankle eating well no stool today Review of Systems Review of Systems: Unobtainable due to cognitive status Physical Exam Physical Exam: gen - NAD, sitting in chair, pleasant lips - MMM neck - no JVD heart - RRR, s1 s2, no murmur lungs - CTA b/l abd - soft NT ND BS+ ext - mild focal edema left ankle but no edema elsewhere; pulses 2+ b/l musculo - left ankle in brace psych - a/o x 1 (person); pleasant confusion Results & Data Results & Data Vital Signs (Past 12 Hours) Vital Signs Temp Pulse Resp BP Pulse Ox O2 Del Method 11/11/23 18:59 36.6 C 78 18 132/74 99 Room Air 11/11/23 17:00 36.7 C 72 17 123/74 97 Room Air 11/11/23 12:00 36.7 C 89 16 119/66 98 Room Air 11/11/23 11:02 36.6 C 78 18 107/57 L 97 Room Air Laboratory Results Laboratory Results - last 24 hr 11/11/23 06:10 WBC 7.32 RBC 3.65 L Hgb 11.7 L Hct 35.9 L MCV 98.4 MCH 32.1 MCHC 32.6 RDW Std Deviation 46.2 RDW Coeff of Irlanda 12.7 Plt Count 358 MPV 9.3 L Sodium 136 Potassium 3.8 Chloride 103 Carbon Dioxide 27 Anion Gap 6 BUN 18 Creatinine 0.72 Est Cr Clr Drug Dosing 39.8 Est GFR ( Amer) 87.9 Est GFR (Non-Af Amer) 75.8 BUN/Creatinine Ratio 25.0 H Glucose 93 Calcium 8.9 25-OH Vitamin D Total 29.4 L PG Care Time/CCT Total # of Minutes Spent Total Time Spent with Patient: Total time spent is greater than 50% in coordination of care (as documented) at patient's floor/unit and/or counseling patient: Coding Level of Care Code 67589 SUB INP/OBS CARE 2/35MIN Diagnoses Closed nondisplaced fracture of lateral malleolus of left fibula, initial encounter S82.65XA Encounter type: initial encounter Fracture alignment: nondisplaced Left ankle injury S99.912A Atrial flutter I48.92 New onset a-fib I48.91 Stroke I63.9 Cognitive impairment R41.89 Failure to thrive in adult R62.7 Dementia with agitation F03.911 Mild malnutrition E44.1 B12 deficiency E53.8 (1) Closed fracture of lateral malleolus of left ankle Encounter type: initial encounter Fracture alignment: nondisplaced Qualified Code(s): S82.65XA - Nondisplaced fracture of lateral malleolus of left fibula, initial encounter for closed fracture
--- NOTE | 2023-11-12 19:35 | Hospitalist Progress Note ---
Date of Service November 12, 2023 Assessment & Plan (1) Closed fracture of lateral malleolus of left ankle: Plan: distal fib fracture -- mild, nondisplaced ortho consult appreciated WBAT with brace in place f/u post-d/c with ortho in 2 weeks checked 25-OH vit D level - minimally depressed at 29; supplement vit D 2000 IU daily cont scheduled tylenol 1gm TID for pain control noted to have CPPD findings on CT - if refractory pain consider low-dose prednisone (not NSAID candidate due to Eliquis) (2) Left ankle injury: Plan: see #1 above (3) Atrial flutter: Plan: discovered on tele earlier this admission no symptoms seen by cardiology - rate control strategy advised for now with metoprolol succ 25mg daily echo with normal LV function TSH wnl no valvular disease if episodes become frequent or she becomes symptomatic then a rhythm strategy might be best cont Eliquis 2.5mg BID cont telemetry (4) New onset a-fib: Plan: seen on telemetry earlier this week cont metoprolol succ cont Eliquis 2.5mg BID for anticoagulation (5) Stroke: Plan: small R sided frontal lobe CVA - subacute - on MRI brain. I spoke with her POA Elsa by phone 10/28/23. she confirmed that Mrs Wild has had mild memory issues for a couple of years but not severe enough to interfere with driving and performing ADLs. however, starting in Jun 2023, her functional status dropped off severely, spe ech became more challenging to understand, falling asleep in her car, etc. Ophthalmologist's license revoked about that time. her receptive speech, however, has remained relatively intact. seeing that the MRI showed this small stroke I question if she has been having small vascular events over the last few months leading to her rapid decline. 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 cont Eliquis 2.5mg BID. stopped aspirin. cont lipitor 40mg daily -- LDL noted 106. echo w/o source of thrombus. CTA head/neck with some atherosclerosis but no significant stenosis. (6) Cognitive impairment: Plan: see above. suspect vascular in origin. replace low B12. 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 started zoloft 12.5mg HS on 10/30/23. consider increase to 25mg next day or two. Na level on most recent BMP wnl. (7) Failure to thrive in adult: Plan: cont MVI cont B12 supplementation cont B1 supplementation appetite overall improving (8) Dementia with agitation: Plan: see above. cont to replace low B12. cont risperdal at 1mg HS - this dose was helpful and she is tolerating such w/o increased sedation or side effects cont to HOLD risperdal AM cont melatonin. cont zoloft 12.5mg daily for possible depression. consider dose increase next few days. tolerating such. cont to defer on cholinesterase inhibitor at this time. (9) Mild malnutrition: Plan: BMI 19, with recent weight loss of about 2-3 kg over the last few months. her weight has decreased while hospitalized. Cont B12, B1, and MVI. Cont Boost supplementation. (10) B12 deficiency: Plan: Level <150 Cont B12 supplementation 1000mcg PO daily Plan DVT proph - Eliquis 2.5mg BID Constipation - miralax daily, senna daily updated pt's NICOA - Elsa ([phone]) - 11/10/23 re: #1, ultimate admission to [facility] Memory unit, etc dispo - memory unit at [facility] on TUESDAY, 11/13 per case management diarrhea - check a cdiff, hold miralax/senna Admission and Anticipated Discharge Date Admission Date: October 25, 2023 Subjective tele - no afib or flutter overnight pt's status unchanged was in relatively good spirits during the visit today per staff multiple episodes of diarrhea this am/today however, eating fair-good Review of Systems Review of Systems: unable to obtain full ROS due to dementia, but she only c/o L ankle pain to me today Physical Exam Physical Exam: gen - NAD, sitting in chair, pleasant lips - MMM neck - no JVD heart - RRR, s1 s2, no murmur lungs - CTA b/l abd - soft NT ND BS+ ext - mild focal edema left hurley and left foot but no edema elsewhere; pulses 2+ b/l musculo - left ankle in brace psych - a/o x 1 (person); pleasant confusion neuro - speech is about baseline (grammatics are poor, sentence structure is poor, etc); receptive speech is more intact than expressive speech Results & Data Results & Data Vital Signs (Past 12 Hours) Vital Signs Temp Pulse Pulse Resp BP Pulse Ox O2 Del Method 11/12/23 16:13 78 11/12/23 15:36 36.6 C 75 18 114/59 L 98 Room Air 11/12/23 09:17 36.4 C L 72 18 108/68 100 Room Air 11/12/23 08:09 64 PG Care Time/CCT Total # of Minutes Spent Total Time Spent with Patient: Total time spent is greater than 50% in coordination of care (as documented) at patient's floor/unit and/or counseling patient: Coding Level of Care Code 88366 SUB INP/OBS CARE 09/22MIN Diagnoses Closed nondisplaced fracture of lateral malleolus of left fibula, initial encounter S82.65XA Encounter type: initial encounter Fracture alignment: nondisplaced Left ankle injury S99.912A Atrial flutter I48.92 New onset a-fib I48.91 Stroke I63.9 Cognitive impairment R41.89 Failure to thrive in adult R62.7 Dementia with agitation F03.911 Mild malnutrition E44.1 B12 deficiency E53.8 (1) Closed fracture of lateral malleolus of left ankle Encounter type: initial encounter Fracture alignment: nondisplaced Qualified Code(s): S82.65XA - Nondisplaced fracture of lateral malleolus of left fibula, initial encounter for closed fracture
--- NOTE | 2023-11-13 20:44 | Hospitalist Progress Note ---
Date of Service November 13, 2023 Assessment & Plan (1) Closed fracture of lateral malleolus of left ankle: Plan: distal fib fracture -- mild, nondisplaced ortho consult appreciated WBAT with brace in place f/u post-d/c with ortho in 2 weeks checked 25-OH vit D level - minimally depressed at 29; supplement vit D 2000 IU daily cont scheduled tylenol 1gm TID for pain control noted to have CPPD findings on CT - has not examined like a pseudogout flare monitor (2) Left ankle injury: Plan: see #1 above (3) Atrial flutter: Plan: discovered on tele earlier this admission no symptoms seen by cardiology - rate control strategy advised with metoprolol succ 25mg daily echo with normal LV function TSH wnl no valvular disease if episodes become frequent or she becomes symptomatic then a rhythm strategy might be best but has not had any a.flutter in many days cont Eliquis 2.5mg BID (4) New onset a-fib: Plan: seen on telemetry early last week - brief cont metoprolol succ cont Eliquis 2.5mg BID for anticoagulation (5) Stroke: Plan: small R sided frontal lobe CVA - subacute - on MRI brain. I spoke with her POA Elsa by phone 10/28/23. she confirmed that Mrs Wild has had mild memory issues for a couple of years but not severe enough to interfere with driving and performing ADLs. however, starting in Jun 2023, her functional status dropped off severely, speech became more challenging to understand, falling asleep in her car, etc. 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 her receptive speech, however, has remained relatively intact. seeing that the MRI showed this small stroke I question if she has been having small vascular events over the last few months leading to her rapid decline. 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 cont Eliquis 2.5mg BID. cont lipitor 40mg daily -- LDL noted 106. echo w/o source of thrombus. CTA head/neck with some atherosclerosis but no significant stenosis. (6) Cognitive impairment: Plan: suspect vascular in origin. replace low B12. 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 started zoloft 12.5mg HS on 10/30/23. consider increase to 25mg next day or two. Na level on most recent BMP wnl. (7) Failure to thrive in adult: Plan: cont MVI cont B12 supplementation cont B1 supplementation appetite overall improving while hospitalized (8) Dementia with agitation: Plan: see above. cont to replace low B12. cont risperdal at 1mg HS - tolerating such w/o increased sedation or side effects cont melatonin. cont zoloft 12.5mg daily for possible depression. consider dose increase next few days. tolerating such. recheck BMP am. cont to defer on cholinesterase inhibitor at this time. (9) Mild malnutrition: Plan: Cont B12, B1, and MVI. Cont Boost supplementation. 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, 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) I asked her if the L ankle hurt and she said no ambulating well per staff eating ok diarrhea has improved by report Physical Exam Physical Exam: gen - NAD, sitting in bed, pleasant, looks good today lips - MMM neck - no JVD heart - RRR, s1 s2, no murmur lungs - CTA b/l abd - soft NT ND BS+ ext - edema left hurley and left foot improved; pulses 2+ b/l musculo - left ankle in brace psych - a/o x 1 (person); pleasant confusion neuro - expressive speech has improved over the last 7-10 days Results & Data Results & Data Vital Signs (Past 12 Hours) Vital Signs Temp Pulse Pulse Resp BP Pulse Ox O2 Del Method 11/13/23 18:57 36.7 C 77 18 129/54 L 97 Room Air 11/13/23 15:03 36.5 C 78 18 125/68 98 Room Air 11/13/23 15:03 75 11/13/23 11:05 36.2 C L 75 16 116/69 100 Room Air PG Care Time/CCT Total # of Minutes Spent Total Time Spent with Patient: Total time spent is greater than 50% in coordination of care (as documented) at patient's floor/unit and/or counseling patient: Coding Level of Care Code 47552 SUB INP/OBS CARE 09/22MIN Diagnoses Closed nondisplaced fracture of lateral malleolus of left fibula, initial encounter S82.65XA Encounter type: initial encounter Fracture alignment: nondisplaced Left ankle injury S99.912A Atrial flutter I48.92 New onset a-fib I48.91 Stroke I63.9 Cognitive impairment R41.89 Failure to thrive in adult R62.7 Dementia with agitation F03.911 Mild malnutrition E44.1 B12 deficiency E53.8 (1) Closed fracture of lateral malleolus of left ankle Encounter type: initial encounter Fracture alignment: nondisplaced Qualified Code(s): S82.65XA - Nondisplaced fracture of lateral malleolus of left fibula, initial encounter for closed fracture
[2023-11-14 06:49] LABS: BUN Creatinine Ratio 20.6 (10-20); Calcium 8.9 mg/dl (8.6-10.3); Creatinine Clr Calc Pharmacy 45.4 ml/min; Est GFR (African American) 94.1 ml/min; Est GFR (Non-African American) 81.2 ml/min; Potassium 4.2 mmol/L (3.5-5.1)
--- NOTE | 2023-11-14 11:01 | Discharge Summary ---
Date of Service November 14, 2023 Admission HPI Per Admitting Provider Patient is an 88-year-old female with past medical history of dementia and depression/anxiety who presents to the hospital via EMS for increasing confusion. is present at bedside at the time of interview. Both patient and are poor historians and patient is significantly confused to the point that she does not understand where she is at and why she has so many blankets on. It seems that the patient has had issues with confusion as progressively been getting worse over the past year. It seems there is a history of her having depression/anxiety and was previously on Celexa but this has been discontinued. Patient previously on memantine as well and this has also been discontinued. Patient takes no medications routinely. Patient's reports that there has been no vomiting episodes. She has been falling more recently with 2 events where she fell and hit her head. She has been eating and drinking much less lately as well which has been concerning for her . No other meaningful HPI gathered at this time. ED course: Patient evaluated by provider. Labs show no abnormalities except for a mildly elevated bilirubin of 1.2. Urinalysis negative for leukocyte esterase or nitrates. Head imaging not demonstrating any acute pathology. The hospitalist service was consulted for admission to get the patient placed in a care facility. Discharge Exam gen - NAD, sitting in bed, pleasant, looks good today lips - MMM neck - no JVD heart - RRR, s1 s2, no murmur lungs - CTA b/l abd - soft NT ND BS+ ext - edema left hurley and left foot improved; pulses 2+ b/l musculo - left ankle in brace psych - a/o x 1 (person); pleasant confusion neuro - expressive speech has improved over the last 7-10 days Discharge Data Allergies Allergy/AdvReac Type Severity Reaction Status Date / Time Penicillins Allergy Intermediate RASH Verified 12/15/22 15:21 adhesive Allergy Unknown RASH AND Verified 12/15/22 15:21 "SKIN DISINTEGRATES" clarithromycin [From Biaxin] Allergy Verified 12/15/22 15:21 Sulfa (Sulfonamide AdvReac Mild "make pt Verified 12/15/22 15:21 Antibiotics) sick" alendronate sodium AdvReac Verified 12/15/22 15:21 [From Fosamax] donepezil AdvReac nausea, Verified 12/15/22 15:21 shakiness, headaches Consultations 10/25/23 18:38 ED Decision to Admit Stat 11/05/23 10:17 Consult Cardiology Routine 11/10/23 09:46 Consult Orthopedic Surgery Routine Ordered Studies 10/25/23 15:24 CT cervical spine wo con Stat CT head/brain wo con Stat 10/28/23 09:49 MR brain wo/w con Routine 10/29/23 08:49 CTA head w con [CT angio head w con] Routine CTA neck with con [CT angio neck with con] Routine 11/10/23 01:02 CT ankle LT wo con Stat Hospital Course (1) Closed fracture of lateral malleolus of left ankle: distal fib fracture -- mild, nondisplaced ortho consult appreciated WBAT with brace in place f/u post-d/c with ortho in 2 weeks checked 25-OH vit D level - minimally depressed at 29; supplement vit D 2000 IU daily cont scheduled tylenol 1gm TID for pain control noted to have CPPD findings on CT - has not examined like a pseudogout flare monitor (2) Left ankle injury: see #1 above (3) Atrial flutter: discovered on tele earlier this admission no symptoms seen by cardiology - rate control strategy advised with metoprolol succ 25mg daily echo with normal LV function TSH wnl no valvular disease if episodes become frequent or she becomes symptomatic then a rhythm strategy might be best but has not had any a.flutter in many days cont Eliquis 2.5mg BID (4) New onset a-fib: seen on telemetry early last week - brief cont metoprolol succ cont Eliquis 2.5mg BID for anticoagulation (5) Stroke: small R sided frontal lobe CVA - subacute - on MRI brain. I spoke with her YOAN Hunter by phone 10/28/23. she confirmed that Mrs Wild has had mild memory issues for a couple of years but not severe enough to interfere with driving and performing ADLs. however, starting in Jun 2023, her functional status dropped off severely, speech became more challenging to understand, falling asleep in her car, etc. 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 her receptive speech, however, has remained relatively intact. seeing that the MRI showed this small stroke I question if she has been having small vascular events over the last few months leading to her rapid decline. 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 cont Eliquis 2.5mg BID. cont lipitor 40mg daily -- LDL noted 106. echo w/o source of thrombus. CTA head/neck with some atherosclerosis but no significant stenosis. (6) Cognitive impairment: suspect vascular in origin. replace low B12. 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 started zoloft 12.5mg HS on 10/30/23. consider increase to 25mg next day or two. Na level on most recent BMP wnl. (7) Failure to thrive in adult: cont MVI cont B12 supplementation cont B1 supplementation appetite overall improving while hospitalized (8) Dementia with agitation: see above. cont to replace low B12. cont risperdal at 1mg HS - tolerating such w/o increased sedation or side effects cont melatonin. cont zoloft 12.5mg daily for possible depression. consider dose increase next few days. tolerating such. recheck BMP am. cont to defer on cholinesterase inhibitor at this time. (9) Mild malnutrition: Cont B12, B1, and MVI. Cont Boost supplementation. (10) B12 deficiency: Level <150 Cont B12 supplementation 1000mcg PO daily Plan DVT proph - Eliquis 2.5mg BID updated pt's YOAN - Elsa ([phone]) - 11/10/23 re: #1, ultimate admission to [facility] Memory unit, etc dispo - memory unit at [facility] on TUESDAY, 11/13 per case management Discharge Plan Discharge Items Reason For Visit: WORSENING CONFUSION Follow-up/Referrals: PCP,NO [Primary Care Provider] - Medications and DC Order Prescriptions: No Action naproxen 500 mg tablet 500 mg PO Q12H PRN (Reason: pain) Qty: 14 0RF Admission Data Admit Date/Time: 10/25/23 18:31 Attending Provider: Db Handy Admit Provider: Kale Gilbert Primary Care Provider: PCP,NO Other Providers: Hugo Beasley at [facility]; Db Landry; [facility]; Satish Aponte; Tito Toure Coding Diagnoses Closed nondisplaced fracture of lateral malleolus of left fibula, initial encounter S82.65XA Encounter type: initial encounter Fracture alignment: nondisplaced Left ankle injury S99.912A Atrial flutter I48.92 New onset a-fib I48.91 Stroke I63.9 Cognitive impairment R41.89 Failure to thrive in adult R62.7 Dementia with agitation F03.911 Mild malnutrition E44.1 B12 deficiency E53.8
== END 2023-11-14 12:55 | disposition home or self-care (01) | DRG 65 ==
LOC: ED 14:51 → EDINP 18:31 → SUATTDRO 18:31 → EDINP 21:15 → 3E 10-26 13:01 → 4W 10-28 14:00